=== PATIENT | female | born 1995 | race Caucasian/White ===

== ENCOUNTER 2017-07-14 08:41 | Emergency (ER) | payer SELFPAY ==
[~2017-07-14] VITALS: Ht 162.5 cm; Wt 79.4 kg
[~2017-07-14 08:41] MED LIST: BACTRIM DS 8001 TA1 PO; CEPHALEXIN500 M1 PO; DIFLUCAN150 MG PO; ESTRADIOL1 MG PO; LANTUS100 U/ML SC; LESSINA 28 0.021 TAB PO; METFORMIN ER500 MG PO; MOTRIN800 MG PO; NOVOLOG10 ML IV
[2017-07-14 09:11] VITALS: BP 146/83
[2017-07-14 09:30] LABS: BASO % 0.4 % (0.0-1.0); EOS # 0.3 10*3/uL (0.0-0.4); EOS % 2.8 % (1.0-4.0); HEMATOCRIT 43.9 % (37.0-47.0); HEMOGLOBIN 15.5 g/dl (12.0-16.0); LYMPH # 2.4 10*3/uL (1.3-4.4); LYMPH % 26.4 % (27.0-41.0); MEAN CELL VOLUME 85.6 fl (81.0-99.0); MEAN CORPUSCULAR HGB 30.2 pg (27.0-31.0); MEAN CORPUSCULAR HGB CONC 35.3 g/dl (33.0-37.0); MONO # 0.6 10*3/uL (0.1-1.0); MONO % 6.6 % (3.0-9.0); NEUT # 5.8 10*3/uL (2.3-7.9); NEUT % 63.5 % (47.0-73.0); PLATELET COUNT AUTOMATED 397 10*3/uL (130-400); RED BLOOD COUNT 5.13 10*6/uL (4.10-5.10); RED CELL DISTRI WIDTH 11.9 % (0-14.5); WHITE BLOOD COUNT 9.2 10*3/uL (4.8-10.8)
[2017-07-14 09:50] LABS: BILIRUBIN NEGATIVE (NEGATIVE); BLOOD 3+ (NEGATIVE); CLARITY SL CLOUDY (CLEAR); COLOR YELLOW (YELLOW); GLUCOSE 3+ (NEGATIVE); KETONE 2+ (NEGATIVE); LEUKO ESTERASE NEGATIVE (NEGATIVE); NITRITE NEGATIVE (NEGATIVE); SPECIFIC GRAVITY 1.015 (1.005-1.030); UROBILINOGEN 0.2 E.U./dl (0.2-1.0)
[2017-07-14 10:10] LABS: WBC 0-2 wbc/hpf (0-5)
[2017-07-14] MEDS ORDERED: PRENATAL ONE D1 EACH PO (12:00)
[2017-07-14] MEDS ORDERED: AMINOPHYLLIN200 MG PO (12:01)
== END 2017-07-14 12:03 | disposition home or self-care (01) ==
LOC: ED 08:41
PROVIDERS: Physician Assistant
DX: O23.31 Infections of other parts of urinary tract in pregnancy, first trimester (principal); N89.8 Other specified noninflammatory disorders of vagina; O99.331 Smoking (tobacco) complicating pregnancy, first trimester; F17.200 Nicotine dependence, unspecified, uncomplicated; Z79.4 Long term (current) use of insulin; Z3A.01 Less than 8 weeks gestation of pregnancy; Z88.6 Allergy status to analgesic agent

== ENCOUNTER 2017-09-05 21:59 | Emergency (ER) | payer MEDICAID ==
[~2017-09-05] VITALS: Ht 162.5 cm; Wt 81.6 kg
[~2017-09-05 21:59] MED LIST changes: +AMINOPHYLLIN200 MG PO; +PRENATAL ONE D1 EACH PO
[2017-09-05 22:03] VITALS: BP 136/83
[2017-09-05] MEDS ORDERED: PROAIR HFA8.5 GM INH (22:47)
[2017-09-05] MEDS ORDERED: AMOXICILLIN500 M3 PO (22:47)
== END 2017-09-05 23:35 | disposition home or self-care (01) ==
LOC: ED 21:59
DX: O99.512 Diseases of the respiratory system complicating pregnancy, second trimester (principal); O24.912 Unspecified diabetes mellitus in pregnancy, second trimester; O99.332 Smoking (tobacco) complicating pregnancy, second trimester; E10.9 Type 1 diabetes mellitus without complications; J10.1 Influenza due to other identified influenza virus with other respiratory manifestations; F17.200 Nicotine dependence, unspecified, uncomplicated; Z3A.20 20 weeks gestation of pregnancy; Z79.4 Long term (current) use of insulin

== ENCOUNTER 2017-11-22 13:44 | Emergency (ER) | payer OTHER ==
[~2017-11-22] VITALS: Ht 162.5 cm; Wt 77.1 kg
[~2017-11-22 13:44] MED LIST changes: +AMOXICILLIN500 M3 PO; -NOVOLOG10 ML IV; +NOVOLOG10 ML SC; +PROAIR HFA8.5 GM INH
[2017-11-22] MEDS ORDERED: LANTUS SOL100 UNIT/1 SC (13:54)
[2017-11-22 14:12] LABS: BILIRUBIN NEGATIVE (NEGATIVE); BLOOD NEGATIVE (NEGATIVE); CLARITY CLOUDY (CLEAR); COLOR YELLOW (YELLOW); GLUCOSE 2+ (NEGATIVE); KETONE 3+ (NEGATIVE); LEUKO ESTERASE 1+ (NEGATIVE); NITRITE NEGATIVE (NEGATIVE)
[2017-11-22 14:14] LABS: BASO % 0.2 % (0.0-1.0); EOS # 0.1 10*3/uL (0.0-0.4); EOS % 0.9 % (1.0-4.0); HEMOGLOBIN 13.9 g/dl (12.0-16.0); LYMPH # 2.6 10*3/uL (1.3-4.4); LYMPH % 18.3 % (27.0-41.0); MEAN CELL VOLUME 88.9 fl (81.0-99.0); MEAN CORPUSCULAR HGB 30.9 pg (27.0-31.0); MEAN CORPUSCULAR HGB CONC 34.8 g/dl (33.0-37.0); MONO # 0.7 10*3/uL (0.1-1.0); MONO % 5.2 % (3.0-9.0); NEUT # 10.5 10*3/uL (2.3-7.9); NEUT % 75.1 % (47.0-73.0); PLATELET COUNT AUTOMATED 366 10*3/uL (130-400); RED CELL DISTRI WIDTH 12.4 % (0-14.5)
[2017-11-22 14:29] LABS: ALBUMIN 2.7 gm/dl (3.1-4.5); BUN 5 mg/dl (7-24); CHLORIDE 107 mmol/L (98-107); CREATININE 0.32 mg/dL (0.55-1.02); POTASSIUM 3.4 mmol/L (3.5-5.1); SGOT/AST 6 IU/L (3-35); SGPT/ALT 11 U/L (12-78); SODIUM 139 mmol/L (136-145)
[2017-11-22 14:30] LABS: ALKALINE PHOSPHATASE 69 U/L (45-117); TOTAL PROTEIN 6.6 gm/dL (6.4-8.2)
[2017-11-22 14:33] LABS: BACTERIA 2+
[2017-11-22 14:34] LABS: EPITHELIAL CELLS 51-100
[2017-11-22 14:45] VITALS: BP 115/66
[2017-11-22] MEDS ORDERED: MACROBID100 M1 PO (14:57)
== END 2017-11-22 15:08 | disposition home or self-care (01) ==
LOC: ED 13:44
PROVIDERS: Nurse Practitioner Family
DX: O23.42 Unspecified infection of urinary tract in pregnancy, second trimester (principal); Z3A.26 26 weeks gestation of pregnancy; Z79.4 Long term (current) use of insulin; Z88.6 Allergy status to analgesic agent; Z79.899 Other long term (current) drug therapy

== ENCOUNTER 2018-02-04 07:04 | Emergency (ER) | payer OTHER ==
[~2018-02-04] VITALS: Ht 162.5 cm; Wt 81.6 kg
[~2018-02-04 07:04] MED LIST changes: +LANTUS SOL100 UNIT/1 SC; +MACROBID100 M1 PO
[2018-02-04 07:08] VITALS: BP 134/95
[2018-02-04 07:47] LABS: BASO # 0.1 10*3/uL (0.0-0.1); BASO % 0.5 % (0.0-1.0); EOS # 0.3 10*3/uL (0.0-0.4); EOS % 2.2 % (1.0-4.0); HEMATOCRIT 42.7 % (37.0-47.0); HEMOGLOBIN 15.2 g/dl (12.0-16.0); LYMPH # 3.5 10*3/uL (1.3-4.4); LYMPH % 30.5 % (27.0-41.0); MEAN CELL VOLUME 87.1 fl (81.0-99.0); MEAN CORPUSCULAR HGB CONC 35.6 g/dl (33.0-37.0); MEAN PLATELET VOLUME 10.8 fl (9.6-12.3); MONO # 0.8 10*3/uL (0.1-1.0); MONO % 6.6 % (3.0-9.0); NEUT # 6.9 10*3/uL (2.3-7.9); NEUT % 59.9 % (47.0-73.0); PLATELET COUNT AUTOMATED 298 10*3/uL (130-400); RED CELL DISTRI WIDTH 11.8 % (0-14.5); WHITE BLOOD COUNT 11.6 10*3/uL (4.8-10.8)
[2018-02-04 07:59] LABS: ALBUMIN 2.6 gm/dl (3.1-4.5); ALKALINE PHOSPHATASE 130 U/L (45-117); BUN 8 mg/dl (7-24); CHLORIDE 105 mmol/L (98-107); CREATININE 0.46 mg/dL (0.55-1.02); POTASSIUM 3.9 mmol/L (3.5-5.1); SGOT/AST 9 IU/L (3-35); SGPT/ALT 9 U/L (12-78); SODIUM 137 mmol/L (136-145); TOTAL PROTEIN 6.7 gm/dL (6.4-8.2)
== END 2018-02-04 07:55 | disposition short-term general hospital (02) ==
LOC: ED 07:04
PROVIDERS: Emergency Medicine
DX: O13.3 Gestational [pregnancy-induced] hypertension without significant proteinuria, third trimester (principal); O24.414 Gestational diabetes mellitus in pregnancy, insulin controlled; Z88.6 Allergy status to analgesic agent; Z3A.38 38 weeks gestation of pregnancy

== ENCOUNTER → 2019-11-21 | Outpatient (CLI) | payer OTHER ==
[~2019-11-21] MED LIST changes: +COLACE100 MG PO
[2019-11-27 09:07] LABS: AFP MOM 1.18 (.); DIA MOM 0.79 (.); DIA VALUE 117.32 pg/mL (.); DSR (BY AGE) 1 IN 1114 (.); DSR (SECOND TRIMESTER) 1 IN 10000 (.); GEST. AGE ON COLLECTION DATE 17.9 WEEKS (.); GESTATIONAL AGE BASED ON As provided (.); HCG MOM 0.29 (.); HCG VALUE 7471 mIU/mL (.); INSULIN DEPENDENT DIABETES No (.); MATERNAL AGE AT EDD 22.6 yr (.); MULTIPLE GESTATION No (.); OSBR RISK 1 IN 6916 (.); RACE Caucasian (.); T18 RISK Not increased (.); TEST RESULTS *Screen Negative* (.); UE3 MOM 0.68 (.); UE3 VALUE 0.88 ng/mL (.); WEIGHT 180 lbs (.)
== END | disposition home or self-care (01) ==
LOC: LAB 07:53
PROVIDERS: Nurse Practitioner Family
DX: Z34.92 Encounter for supervision of normal pregnancy, unspecified, second trimester (principal); Z3A.00 Weeks of gestation of pregnancy not specified

== ENCOUNTER → 2020-02-12 | Outpatient (CLI) | payer OTHER ==
[2020-02-12 11:07] LABS: BASO # 0.1 10*3/uL (0.0-0.1); BASO % 0.4 % (0.0-1.0); EOS # 0.1 10*3/uL (0.0-0.4); HEMATOCRIT 40.7 % (37.0-47.0); LYMPH # 2.5 10*3/uL (1.3-4.4); LYMPH % 21.2 % (27.0-41.0); MEAN CELL VOLUME 87.7 fl (81.0-99.0); MEAN CORPUSCULAR HGB CONC 34.2 g/dl (33.0-37.0); MONO # 0.8 10*3/uL (0.1-1.0); MONO % 6.5 % (3.0-9.0); NEUT # 8.3 10*3/uL (2.3-7.9); NEUT % 70.6 % (47.0-73.0); PLATELET COUNT AUTOMATED 384 10*3/uL (130-400); RED BLOOD COUNT 4.64 10*6/uL (4.10-5.10); RED CELL DISTRI WIDTH 12.1 % (0-14.5); WHITE BLOOD COUNT 11.7 10*3/uL (4.8-10.8)
== END | disposition home or self-care (01) ==
LOC: LAB 10:39
PROVIDERS: ATTEND Obstetrics & Gynecology
DX: Z34.93 Encounter for supervision of normal pregnancy, unspecified, third trimester (principal); Z3A.00 Weeks of gestation of pregnancy not specified

== ENCOUNTER 2020-02-21 08:51 | Emergency (ER) | payer OTHER ==
[~2020-02-21] VITALS: Wt 82.6 kg
[2020-02-21 08:58] VITALS: BP 135/75
[2020-02-21 09:33] LABS: BILIRUBIN Negative; BLOOD 1+ (NEGATIVE); CLARITY Clear (CLEAR); COLOR Yellow (YELLOW); GLUCOSE 3+; KETONE 3+; LEUKO ESTERASE Negative (NEGATIVE); NITRITE Negative (NEGATIVE); PH 5.5 (4.5-8.0); SPECIFIC GRAVITY >= 1.030 (1.001-1.030); UROBILINOGEN 0.2 E.U./dl (0.0-1.0)
== END 2020-02-21 09:35 | disposition home or self-care (01) ==
LOC: ED 08:51
PROVIDERS: Emergency Medicine
DX: O99.89 Other specified diseases and conditions complicating pregnancy, childbirth and the puerperium (principal); N89.8 Other specified noninflammatory disorders of vagina; Z3A.32 32 weeks gestation of pregnancy; Z88.8 Allergy status to other drugs, medicaments and biological substances; Z79.899 Other long term (current) drug therapy; Z79.4 Long term (current) use of insulin

== ENCOUNTER 2021-06-06 12:04 | Emergency (ER) | payer OTHER ==
[~2021-06-06] VITALS: Wt 68.0 kg
[2021-06-06 12:27] VITALS: BP 127/97
== END 2021-06-06 13:45 | disposition left against medical advice (07) ==
LOC: ED 12:04
DX: Z53.21 Procedure and treatment not carried out due to patient leaving prior to being seen by health care provider (principal)

== ENCOUNTER 2021-08-19 19:02 | Emergency (ER) | payer OTHER ==
[~2021-08-19] VITALS: Wt 63.0 kg
[2021-08-19 19:13] VITALS: BP 140/93
[2021-08-19] MEDS ORDERED: LANTUS SOL100 UNIT/1 SC (19:14)
[2021-08-19] MEDS ORDERED: ADDERALL XR25 MG PO (19:14)
== END 2021-08-19 20:32 | disposition home or self-care (01) ==
LOC: ED 19:02
DX: M79.672 Pain in left foot (principal); Z88.6 Allergy status to analgesic agent; Z79.899 Other long term (current) drug therapy; F17.200 Nicotine dependence, unspecified, uncomplicated

== ENCOUNTER 2022-07-19 15:44 | Emergency (ER) | payer BC ==
[~2022-07-19] VITALS: Wt 54.0 kg
[~2022-07-19 15:44] MED LIST changes: +ADDERALL XR25 MG PO
[2022-07-19 15:56] VITALS: BP 127/95
[2022-07-19 16:27] LABS: BASO # 0.1 10*3/uL (0.0-0.1); BASO % 0.7 % (0.0-1.0); EOS # 0.2 10*3/uL (0.0-0.4); EOS % 1.6 % (1.0-4.0); HEMATOCRIT 43.9 % (37.0-47.0); LYMPH # 4.1 10*3/uL (1.3-4.4); MEAN CELL VOLUME 84.7 fl (81.0-99.0); MEAN CORPUSCULAR HGB 30.3 pg (27.0-31.0); MEAN CORPUSCULAR HGB CONC 35.8 g/dl (33.0-37.0); MEAN PLATELET VOLUME 8.9 fl (9.6-12.3); MONO # 0.7 10*3/uL (0.1-1.0); MONO % 6.6 % (3.0-9.0); NEUT # 4.9 10*3/uL (2.3-7.9); NEUT % 49.9 % (47.0-73.0); PLATELET COUNT AUTOMATED 404 10*3/uL (130-400); RED BLOOD COUNT 5.18 10*6/uL (4.10-5.10); RED CELL DISTRI WIDTH 11.8 % (0-14.5); WHITE BLOOD COUNT 9.9 10*3/uL (4.8-10.8)
[2022-07-19 16:43] LABS: ALKALINE PHOSPHATASE 76 U/L (46-116); BUN 6 mg/dl (9-23); CHLORIDE 96 mmol/L (98-107); SGPT/ALT 13 U/L (10-49); TOTAL PROTEIN 6.9 gm/dL (6.0-8.0)
[2022-07-19 16:59] LABS: B-hCG (QUALITATIVE) NEGATIVE (NEGATIVE)
[2022-07-19 19:11] LABS: BILIRUBIN Negative (Negative); BLOOD Negative (Negative); CLARITY Clear (Clear); COLOR Yellow (Yellow); GLUCOSE 3+ (Negative); KETONE 2+ (Negative); LEUKO ESTERASE Negative (Negative); NITRITE Negative (Negative); SPECIFIC GRAVITY >= 1.030 (1.001-1.030)
[2022-07-19 19:19] LABS: MUCOUS 1+; WBC 0-2 wbc/hpf (0-5)
== END 2022-07-19 20:02 | disposition home or self-care (01) ==
LOC: ED 15:44
PROVIDERS: Physician Assistant
DX: E11.65 Type 2 diabetes mellitus with hyperglycemia (principal); Z88.8 Allergy status to other drugs, medicaments and biological substances; Z79.4 Long term (current) use of insulin

== ENCOUNTER 2023-06-10 12:57 | Emergency (ER) | payer MEDICAID ==
[~2023-06-10] VITALS: Ht 160 cm; Wt 45.4 kg
[2023-06-10 13:12] VITALS: BP 122/86
[2023-06-10 14:38] LABS: BASO % 0.2 % (0.0-1.0); EOS # 0.1 10*3/uL (0.0-0.4); EOS % 0.7 % (1.0-4.0); HEMATOCRIT 44.9 % (37.0-47.0); LYMPH # 2.6 10*3/uL (1.3-4.4); LYMPH % 26.6 % (27.0-41.0); MEAN CELL VOLUME 87.4 fl (81.0-99.0); MEAN CORPUSCULAR HGB 28.8 pg (27.0-31.0); MEAN PLATELET VOLUME 8.8 fl (9.6-12.3); MONO # 0.8 10*3/uL (0.1-1.0); MONO % 7.9 % (3.0-9.0); NEUT # 6.3 10*3/uL (2.3-7.9); NEUT % 64.3 % (47.0-73.0); PLATELET COUNT AUTOMATED 364 10*3/uL (130-400); RED BLOOD COUNT 5.14 10*6/uL (4.10-5.10); RED CELL DISTRI WIDTH 11.8 % (0-14.5); WHITE BLOOD COUNT 9.9 10*3/uL (4.8-10.8)
[2023-06-10 15:00] LABS: ALKALINE PHOSPHATASE 96 U/L (46-116); BUN 13 mg/dl (9-23); CHLORIDE 97 mmol/L (98-107); POTASSIUM 4.1 mmol/L (3.4-5.1); SGPT/ALT 11 U/L (5-49)
[2023-06-10] MEDS ORDERED: AVPAK AZITHROM250 M1 PO (17:54)
== END 2023-06-10 18:05 | disposition home or self-care (01) ==
LOC: ED 12:57
PROVIDERS: Nurse Practitioner Family
DX: J40 Bronchitis, not specified as acute or chronic (principal); Z20.822 Contact with and (suspected) exposure to COVID-19; E11.65 Type 2 diabetes mellitus with hyperglycemia; E86.0 Dehydration; R00.0 Tachycardia, unspecified; Z88.8 Allergy status to other drugs, medicaments and biological substances; Z79.4 Long term (current) use of insulin; Z79.899 Other long term (current) drug therapy

== ENCOUNTER 2023-07-01 05:46 | Inpatient (IN) | payer SELFPAY ==
[~2023-07-01] VITALS: Ht 160 cm; Wt 48.0 kg
[~2023-07-01 05:46] MED LIST changes: +AVPAK AZITHROM250 M1 PO
[2023-07-01 05:56] VITALS: BP 112/68
[2023-07-01 06:29] LABS: BASO # 0.1 10*3/uL (0.0-0.1); BASO % 0.3 % (0.0-1.0); EOS % 0.1 % (1.0-4.0); HEMATOCRIT 48.7 % (37.0-47.0); LYMPH # 1.8 10*3/uL (1.3-4.4); LYMPH % 11.6 % (27.0-41.0); MEAN CORPUSCULAR HGB 29.2 pg (27.0-31.0); MEAN CORPUSCULAR HGB CONC 32.4 g/dl (33.0-37.0); MEAN PLATELET VOLUME 9.3 fl (9.6-12.3); MONO # 0.6 10*3/uL (0.1-1.0); MONO % 3.9 % (3.0-9.0); NEUT # 12.7 10*3/uL (2.3-7.9); NEUT % 83.7 % (47.0-73.0); PLATELET COUNT AUTOMATED 471 10*3/uL (130-400); RED BLOOD COUNT 5.41 10*6/uL (4.10-5.10); RED CELL DISTRI WIDTH 12.8 % (0-14.5); WHITE BLOOD COUNT 15.1 10*3/uL (4.8-10.8)
[2023-07-01 06:49] LABS: ALKALINE PHOSPHATASE 120 U/L (46-116); BUN 18 mg/dl (9-23); CHLORIDE 90 mmol/L (98-107); SGPT/ALT 17 U/L (5-49); TOTAL PROTEIN 8.3 gm/dL (6.0-8.0)
[2023-07-01] MEDS ORDERED: NOVOLOG10 ML SC (06:50)
[2023-07-01 07:10] VITALS: BP 118/68
[2023-07-01 09:48] VITALS: BP 114/74
[2023-07-01 12:12] VITALS: BP 107/68
[2023-07-01 17:04] VITALS: BP 118/66
[2023-07-01 17:33] LABS: BILIRUBIN Negative (Negative); BLOOD Negative (Negative); CLARITY Clear (Clear); COLOR Yellow (Yellow); GLUCOSE 3+ (Negative); KETONE 3+ (Negative); LEUKO ESTERASE Negative (Negative); NITRITE Negative (Negative); SPECIFIC GRAVITY >= 1.030 (1.001-1.030); UROBILINOGEN 0.2 E.U./dl (0.0-1.0)
[2023-07-01 17:47] LABS: BACTERIA TRACE; EPITHELIAL CELLS 16-20; YEAST TRACE
[2023-07-01 17:48] LABS: BUN 17 mg/dl (9-23); CHLORIDE 95 mmol/L (98-107); POTASSIUM 3.3 mmol/L (3.4-5.1)
[2023-07-01 20:00] VITALS: BP 100/57
[2023-07-02] VITALS: BP 116/77
[2023-07-02 04:00] VITALS: BP 124/65
[2023-07-02 06:11] LABS: BASO % 0.4 % (0.0-1.0); EOS # 0.3 10*3/uL (0.0-0.4); EOS % 2.4 % (1.0-4.0); LYMPH # 3.6 10*3/uL (1.3-4.4); LYMPH % 33.3 % (27.0-41.0); MEAN CELL VOLUME 89.8 fl (81.0-99.0); MEAN CORPUSCULAR HGB 29.3 pg (27.0-31.0); MEAN CORPUSCULAR HGB CONC 32.6 g/dl (33.0-37.0); MEAN PLATELET VOLUME 9.3 fl (9.6-12.3); MONO # 0.8 10*3/uL (0.1-1.0); MONO % 7.4 % (3.0-9.0); NEUT # 6.1 10*3/uL (2.3-7.9); NEUT % 56.1 % (47.0-73.0); PLATELET COUNT AUTOMATED 359 10*3/uL (130-400); RED BLOOD COUNT 4.23 10*6/uL (4.10-5.10); RED CELL DISTRI WIDTH 12.6 % (0-14.5); WHITE BLOOD COUNT 10.8 10*3/uL (4.8-10.8)
[2023-07-02 06:24] LABS: BUN 13 mg/dl (9-23); CHLORIDE 99 mmol/L (98-107)
[2023-07-02 08:00] VITALS: BP 113/74
== END 2023-07-02 09:55 | disposition left against medical advice (07) | DRG 639 ==
LOC: ED 05:46 → EDHOLD 07:16 → ICCU 07:16
PROVIDERS: Emergency Medicine; ADMIT Internal Medicine; ATTEND Internal Medicine
DX: E10.10 Type 1 diabetes mellitus with ketoacidosis without coma (principal); E87.6 Hypokalemia; Z91.148 Patient's other noncompliance with medication regimen for other reason; Z53.29 Procedure and treatment not carried out because of patient's decision for other reasons

== ENCOUNTER 2023-09-05 05:20 | Inpatient (IN) | payer SELFPAY ==
[~2023-09-05] VITALS: Ht 160 cm; Wt 48.1 kg
[2023-09-05 05:31] VITALS: BP 118/79
[2023-09-05] MEDS ORDERED: Ondansetron Hydrochloride 4 MG/2 ML VIAL IV ONE (05:50)
[2023-09-05] MEDS ORDERED: SODIUM CHLORIDE 0.9% 1,000 ML IV ONE ×3 (05:50→07:00)
[2023-09-05] MEDS ORDERED: INSULIN REGULAR, HUMAN 1 UNIT/0.01 ML IV ONE ×2 (05:50)
[2023-09-05 06:09] LABS: ABG BASE EXCESS -0.7 mmol/L (-2.0-2.0); ARTERIAL BLOOD GAS PH 7.423 (7.35-7.45)
[2023-09-05 06:11] LABS: BASO # 0.1 10*3/uL (0.0-0.1); BASO % 0.4 % (0.0-1.0); EOS % 0.1 % (1.0-4.0); HEMATOCRIT 49.7 % (37.0-47.0); LYMPH % 14.7 % (27.0-41.0); MEAN CELL VOLUME 87.5 fl (81.0-99.0); MEAN CORPUSCULAR HGB 29.6 pg (27.0-31.0); MEAN CORPUSCULAR HGB CONC 33.8 g/dl (33.0-37.0); MONO # 0.5 10*3/uL (0.1-1.0); MONO % 3.6 % (3.0-9.0); NEUT # 10.9 10*3/uL (2.3-7.9); NEUT % 80.8 % (47.0-73.0); PLATELET COUNT AUTOMATED 508 10*3/uL (130-400); RED BLOOD COUNT 5.68 10*6/uL (4.10-5.10); RED CELL DISTRI WIDTH 12.4 % (0-14.5); WHITE BLOOD COUNT 13.4 10*3/uL (4.8-10.8)
[2023-09-05 06:42] LABS: BUN 17 mg/dl (9-23); CHLORIDE 85 mmol/L (98-107)
[2023-09-05] MEDS ORDERED: INSULIN REGULAR IN 0.9 % NACL 100 ML IV SCH ×2 (07:00→10:10)
[2023-09-05] MEDS ORDERED: POTASSIUM CHLORIDE IN WATER 100 ML IV SCH (07:00)
[2023-09-05] MEDS ORDERED: Ondansetron Hydrochloride 4 MG/2 ML VIAL IV PRN (08:35)
[2023-09-05 08:42] VITALS: BP 130/77
[2023-09-05 10:10] VITALS: BP 128/71
[2023-09-05] MEDS ORDERED: POTASSIUM CHLORIDE IN WATER 10 MEQ/100 ML PIGGYBACK IV PRN (10:10)
[2023-09-05] MEDS ORDERED: POTASSIUM CHLORIDE 20 MEQ TAB PO PRN (10:10)
[2023-09-05 12:00] VITALS: BP 130/95
[2023-09-05] MEDS ORDERED: DEXTROSE 5% SALINE 0.45% 1,000 ML IV SCH (13:20)
[2023-09-05] MEDS ORDERED: MUPIROCIN 15 GM TUBE T SCH (14:00)
[2023-09-05 16:00] VITALS: BP 114/66
[2023-09-05 18:15] LABS: BUN 12 mg/dl (9-23); CHLORIDE 98 mmol/L (98-107); POTASSIUM 2.8 mmol/L (3.4-5.1)
[2023-09-05 20:00] VITALS: BP 117/73
[2023-09-05] MEDS ORDERED: AMMONIUM LACTATE 12% LOTION T SCH (22:00)
[2023-09-06] VITALS: BP 123/67
[2023-09-06 00:36] LABS: BUN 14 mg/dl (9-23); CHLORIDE 100 mmol/L (98-107); POTASSIUM 2.8 mmol/L (3.4-5.1)
[2023-09-06 04:00] VITALS: BP 131/87
[2023-09-06 06:30] LABS: BASO % 0.2 % (0.0-1.0); BUN 11 mg/dl (9-23); CHLORIDE 98 mmol/L (98-107); EOS # 0.1 10*3/uL (0.0-0.4); EOS % 0.3 % (1.0-4.0); HEMATOCRIT 45.6 % (37.0-47.0); LYMPH # 3.1 10*3/uL (1.3-4.4); LYMPH % 18.1 % (27.0-41.0); MEAN CELL VOLUME 89.2 fl (81.0-99.0); MEAN CORPUSCULAR HGB 29.7 pg (27.0-31.0); MEAN CORPUSCULAR HGB CONC 33.3 g/dl (33.0-37.0); MEAN PLATELET VOLUME 9.6 fl (9.6-12.3); MONO # 0.7 10*3/uL (0.1-1.0); MONO % 4.1 % (3.0-9.0); NEUT # 13.3 10*3/uL (2.3-7.9); NEUT % 76.8 % (47.0-73.0); PLATELET COUNT AUTOMATED 460 10*3/uL (130-400); POTASSIUM 3.4 mmol/L (3.4-5.1); RED BLOOD COUNT 5.11 10*6/uL (4.10-5.10); RED CELL DISTRI WIDTH 12.3 % (0-14.5); WHITE BLOOD COUNT 17.3 10*3/uL (4.8-10.8)
[2023-09-06] MEDS ORDERED: Ketorolac Tromethamine 30 MG/ML VIAL IV ONE (07:05)
[2023-09-06] MEDS ORDERED: Ketorolac Tromethamine 15 MG/ML VIAL IV PRN (07:10)
[2023-09-06 08:00] VITALS: BP 124/85
[2023-09-06] MEDS ORDERED: DEXTROSE 10 % IN WATER 250 ML IV PRN (10:20)
[2023-09-06] MEDS ORDERED: SODIUM CHLORIDE 0.9% 1,000 ML IV SCH (10:20)
[2023-09-06] MEDS ORDERED: INSULIN REGULAR, HUMAN 1 UNIT/0.01 ML SC SCH (11:30)
[2023-09-06 12:00] VITALS: BP 126/89
[2023-09-06] MEDS ORDERED: INSULIN LISPRO 1 UNIT/0.01 ML SQ SCH (12:00)
[2023-09-06 12:45] LABS: BUN 12 mg/dl (9-23); CHLORIDE 96 mmol/L (98-107); POTASSIUM 3.9 mmol/L (3.4-5.1)
[2023-09-07] MEDS ORDERED: Insulin Glargine, Recombinan 1 UNIT/0.01 ML SC SCH (10:00)
== END 2023-09-06 16:39 | disposition left against medical advice (07) | DRG 639 ==
LOC: ED 05:20 → ICCU 07:08 → EDHOLD 07:08 → ICCU 09:46
PROVIDERS: Internal Medicine; ADMIT Internal Medicine; ATTEND Internal Medicine
DX: E10.10 Type 1 diabetes mellitus with ketoacidosis without coma (principal); E87.6 Hypokalemia; D75.1 Secondary polycythemia; E10.43 Type 1 diabetes mellitus with diabetic autonomic (poly)neuropathy; K31.84 Gastroparesis; Z91.199 Patient's noncompliance with other medical treatment and regimen due to unspecified reason

== ENCOUNTER 2023-11-08 09:02 | Emergency (ER) | payer SELFPAY ==
[~2023-11-08] VITALS: Wt 52.2 kg
[2023-11-08] MEDS ORDERED: SODIUM CHLORIDE 0.45% 1,000 ML IV ONE (09:35)
[2023-11-08 09:46] LABS: BASO # 0.1 10*3/uL (0.0-0.1); BASO % 0.5 % (0.0-1.0); EOS # 0.2 10*3/uL (0.0-0.4); HEMATOCRIT 42.8 % (37.0-47.0); LYMPH # 2.4 10*3/uL (1.3-4.4); LYMPH % 23.8 % (27.0-41.0); MEAN CELL VOLUME 88.4 fl (81.0-99.0); MEAN CORPUSCULAR HGB CONC 33.9 g/dl (33.0-37.0); MONO # 0.6 10*3/uL (0.1-1.0); MONO % 6.2 % (3.0-9.0); NEUT # 6.6 10*3/uL (2.3-7.9); NEUT % 67.2 % (47.0-73.0); PLATELET COUNT AUTOMATED 387 10*3/uL (130-400); RED BLOOD COUNT 4.84 10*6/uL (4.10-5.10); WHITE BLOOD COUNT 9.9 10*3/uL (4.8-10.8)
[2023-11-08 10:14] LABS: ALKALINE PHOSPHATASE 100 U/L (46-116); BUN 9 mg/dl (9-23); CHLORIDE 99 mmol/L (98-107); POTASSIUM 4.1 mmol/L (3.4-5.1); SGPT/ALT 11 U/L (5-49); TOTAL PROTEIN 7.1 gm/dL (6.0-8.0)
[2023-11-08 10:18] LABS: BILIRUBIN Negative (Negative); BLOOD Negative (Negative); CLARITY Clear (Clear); COLOR Yellow (Yellow); GLUCOSE 3+ (Negative); KETONE 1+ (Negative); LEUKO ESTERASE Negative (Negative); NITRITE Negative (Negative); PH 5.5 (4.5-8.0); SPECIFIC GRAVITY >= 1.030 (1.001-1.030); UROBILINOGEN 0.2 E.U./dl (0.0-1.0)
[2023-11-08 10:33] LABS: BACTERIA TRACE; WBC 0-2 wbc/hpf (0-5)
[2023-11-08] MEDS ORDERED: SODIUM CHLORIDE 0.9% 1,000 ML IV ONE ×2 (10:55→11:59)
[2023-11-08] MEDS ORDERED: INSULIN LISPRO 1 UNIT/0.01 ML SQ ONE (10:55)
[2023-11-08 11:55] VITALS: BP 116/80
[2023-11-08] MEDS ORDERED: Amoxicillin/Clavulanate Pota 875 MG TAB PO ONE (13:20)
[2023-11-08] MEDS ORDERED: AMOX-CLAV 875-1 EACH PO (13:29)
== END 2023-11-08 13:35 | disposition home or self-care (01) ==
LOC: ED 09:02
PROVIDERS: Emergency Medicine
DX: N63.20 Unspecified lump in the left breast, unspecified quadrant (principal); E10.9 Type 1 diabetes mellitus without complications

== ENCOUNTER → 2023-11-15 | Outpatient (CLI) | payer SELFPAY ==
[~2023-11-15] MED LIST changes: +AMOX-CLAV 875-1 EACH PO
== END | disposition home or self-care (01) ==
LOC: RAD 11-09 11:00 → SDC 11-09 11:00 → US 11-09 11:00 → EDSTATUS 11-09 11:00 → MAMMO 11-09 13:00 → SDC 01:58
PROVIDERS: ATTEND Emergency Medicine
DX: N61.1 Abscess of the breast and nipple (principal)

== ENCOUNTER 2023-11-23 18:02 | Inpatient (IN) | payer SELFPAY ==
[~2023-11-23] VITALS: Ht 160 cm; Wt 54.4 kg
[2023-11-23 18:08] VITALS: BP 147/89
[2023-11-23] MEDS ORDERED: CLINDAMYCIN HC300 MG PO (18:09)
[2023-11-23 18:33] LABS: BASO # 0.1 10*3/uL (0.0-0.1); BASO % 0.5 % (0.0-1.0); EOS # 0.2 10*3/uL (0.0-0.4); EOS % 1.2 % (1.0-4.0); LYMPH # 2.4 10*3/uL (1.3-4.4); LYMPH % 16.5 % (27.0-41.0); MEAN CELL VOLUME 88.4 fl (81.0-99.0); MEAN CORPUSCULAR HGB 30.2 pg (27.0-31.0); MEAN CORPUSCULAR HGB CONC 34.1 g/dl (33.0-37.0); MONO % 6.7 % (3.0-9.0); NEUT # 10.8 10*3/uL (2.3-7.9); NEUT % 74.7 % (47.0-73.0); PLATELET COUNT AUTOMATED 435 10*3/uL (130-400); RED BLOOD COUNT 4.64 10*6/uL (4.10-5.10); RED CELL DISTRI WIDTH 11.9 % (0-14.5); WHITE BLOOD COUNT 14.4 10*3/uL (4.8-10.8)
[2023-11-23 18:46] LABS: BUN 10 mg/dl (9-23); CHLORIDE 99 mmol/L (98-107)
[2023-11-23] MEDS ORDERED: SODIUM CHLORIDE 0.9% 1,000 ML IV ONE (19:00)
[2023-11-23] MEDS ORDERED: INSULIN REGULAR, HUMAN 1 UNIT/0.01 ML IV ONE (19:05)
[2023-11-23] MEDS ORDERED: Ketorolac Tromethamine 30 MG/ML VIAL IV ONE (19:05)
[2023-11-23] MEDS ORDERED: Vancomycin Hydrochloride 250 ML IV ONE (19:15)
[2023-11-23] MEDS ORDERED: Piperacillin Sodium/Tazobact 50 ML IV ONE (19:15)
[2023-11-23 22:19] VITALS: BP 122/74
[2023-11-24 03:17] VITALS: BP 130/80
[2023-11-24 04:27] LABS: BASO # 0.1 10*3/uL (0.0-0.1); BASO % 0.5 % (0.0-1.0); EOS # 0.2 10*3/uL (0.0-0.4); EOS % 1.4 % (1.0-4.0); HEMATOCRIT 39.5 % (37.0-47.0); LYMPH # 2.2 10*3/uL (1.3-4.4); LYMPH % 15.4 % (27.0-41.0); MEAN CORPUSCULAR HGB CONC 33.7 g/dl (33.0-37.0); MEAN PLATELET VOLUME 9.1 fl (9.6-12.3); MONO # 0.9 10*3/uL (0.1-1.0); MONO % 6.2 % (3.0-9.0); NEUT # 10.7 10*3/uL (2.3-7.9); NEUT % 76.1 % (47.0-73.0); PLATELET COUNT AUTOMATED 399 10*3/uL (130-400); RED BLOOD COUNT 4.44 10*6/uL (4.10-5.10); RED CELL DISTRI WIDTH 11.9 % (0-14.5); WHITE BLOOD COUNT 14.1 10*3/uL (4.8-10.8)
[2023-11-24 04:48] LABS: BUN 10 mg/dl (9-23); CHLORIDE 100 mmol/L (98-107); POTASSIUM 4.1 mmol/L (3.4-5.1)
[2023-11-24 06:04] VITALS: BP 128/76
[2023-11-24] MEDS ORDERED: LANTUS SOL100 UNIT/1 SC (08:12)
[2023-11-24] MEDS ORDERED: LEVOFLOXACIN500 MG PO (08:16)
[2023-11-24] MEDS ORDERED: Ondansetron Hydrochloride 4 MG/2 ML VIAL IV PRN (08:25)
[2023-11-24] MEDS ORDERED: Acetaminophen/Hydrocodone 5 MG/325 MG TABLET PO PRN (08:25)
[2023-11-24 13:34] VITALS: BP 133/78
[2023-11-24] MEDS ORDERED: Pantoprazole Sodium 40 MG VIAL IV ONE (14:05)
[2023-11-24] MEDS ORDERED: Lidocaine Hydrochloride 30 ML VIAL ONE (14:26)
[2023-11-24] MEDS ORDERED: EPINEPHrine/Lidocaine Hydroc 20 ML VIAL ONE (14:27)
[2023-11-24] MEDS ORDERED: BUPIVACAINE 0.5% 30 ML IV ONE (14:27)
[2023-11-24 14:46] VITALS: BP 113/72
[2023-11-24 15:00] VITALS: BP 138/98
[2023-11-24 15:11] VITALS: BP 140/92
[2023-11-24] MEDS ORDERED: Midazolam Hydrochloride 2 MG/2 ML VIAL IV ONE (15:32)
[2023-11-24] MEDS ORDERED: fentaNYL CITRATE 100 MCG/2 ML VIAL IV ONE (15:32)
[2023-11-24] MEDS ORDERED: PROPOFOL 200 MG/20 ML VIAL IV ONE (15:32)
[2023-11-24] MEDS ORDERED: Insulin Glargine, Recombinan 1 UNIT/0.01 ML SC SCH (22:00)
== END 2023-11-24 16:06 | disposition home or self-care (01) | DRG 585 ==
LOC: ED 18:02 → EDHOLD 19:34
PROVIDERS: Nurse Practitioner; ADMIT Internal Medicine; ATTEND Internal Medicine
PROC: 0H9U0ZZ Drainage of Left Breast, Open Approach (ICD-10-PCS; principal; 2023-11-24)
DX: N61.1 Abscess of the breast and nipple (principal); E10.9 Type 1 diabetes mellitus without complications

== ENCOUNTER 2024-01-15 05:35 | Emergency (ER) | payer SELFPAY ==
[~2024-01-15] VITALS: Ht 160 cm; Wt 49.9 kg
[~2024-01-15 05:35] MED LIST changes: +CLINDAMYCIN HC300 MG PO; +LEVOFLOXACIN500 MG PO
[2024-01-15] MEDS ORDERED: SODIUM CHLORIDE 0.9% 1,000 ML IV ONE ×2 (05:50→05:55)
[2024-01-15] MEDS ORDERED: INSULIN REGULAR, HUMAN 1 UNIT/0.01 ML IV ONE ×2 (06:00)
[2024-01-15 06:15] LABS: BASO # 0.1 10*3/uL (0.0-0.1); BASO % 0.6 % (0.0-1.0); EOS # 0.1 10*3/uL (0.0-0.4); EOS % 0.7 % (1.0-4.0); HEMATOCRIT 46.7 % (37.0-47.0); LYMPH # 2.4 10*3/uL (1.3-4.4); LYMPH % 21.4 % (27.0-41.0); MEAN CELL VOLUME 86.5 fl (81.0-99.0); MEAN CORPUSCULAR HGB CONC 34.7 g/dl (33.0-37.0); MEAN PLATELET VOLUME 8.9 fl (9.6-12.3); MONO # 0.6 10*3/uL (0.1-1.0); NEUT % 71.8 % (47.0-73.0); PLATELET COUNT AUTOMATED 423 10*3/uL (130-400); RED CELL DISTRI WIDTH 11.9 % (0-14.5); WHITE BLOOD COUNT 11.1 10*3/uL (4.8-10.8)
[2024-01-15 06:31] LABS: BILIRUBIN Negative (Negative); BLOOD Negative (Negative); CLARITY Clear (Clear); COLOR Yellow (Yellow); GLUCOSE 3+ (Negative); KETONE 3+ (Negative); LEUKO ESTERASE Negative (Negative); NITRITE Negative (Negative); PH 6.5 (4.5-8.0); SPECIFIC GRAVITY >= 1.030 (1.001-1.030); UROBILINOGEN 0.2 E.U./dl (0.0-1.0)
[2024-01-15 06:37] LABS: BUN 16 mg/dl (9-23); CHLORIDE 93 mmol/L (98-107)
[2024-01-15 11:54] VITALS: BP 118/74
== END 2024-01-15 12:05 | disposition home or self-care (01) ==
LOC: ED 05:35
PROVIDERS: Internal Medicine
DX: E11.65 Type 2 diabetes mellitus with hyperglycemia (principal); R11.2 Nausea with vomiting, unspecified; R63.0 Anorexia; Z68.1 Body mass index [BMI] 19.9 or less, adult; Z79.4 Long term (current) use of insulin

== ENCOUNTER 2024-02-02 23:04 | Inpatient (IN) | payer SELFPAY ==
[~2024-02-02] VITALS: Wt 53.5 kg
[2024-02-02] MEDS ORDERED: SODIUM CHLORIDE 0.9% 1,000 ML IV ONE (23:25)
[2024-02-02 23:32] VITALS: BP 125/86
[2024-02-03 00:04] LABS: BASO # 0.1 10*3/uL (0.0-0.1); BASO % 0.6 % (0.0-1.0); EOS % 0.2 % (1.0-4.0); HEMATOCRIT 50.2 % (37.0-47.0); LYMPH # 2.7 10*3/uL (1.3-4.4); LYMPH % 15.4 % (27.0-41.0); MEAN CELL VOLUME 92.3 fl (81.0-99.0); MEAN CORPUSCULAR HGB 29.8 pg (27.0-31.0); MEAN CORPUSCULAR HGB CONC 32.3 g/dl (33.0-37.0); MEAN PLATELET VOLUME 9.3 fl (9.6-12.3); MONO % 5.8 % (3.0-9.0); NEUT # 13.7 10*3/uL (2.3-7.9); NEUT % 77.4 % (47.0-73.0); PLATELET COUNT AUTOMATED 378 10*3/uL (130-400); RED BLOOD COUNT 5.44 10*6/uL (4.10-5.10); RED CELL DISTRI WIDTH 12.2 % (0-14.5); WHITE BLOOD COUNT 17.6 10*3/uL (4.8-10.8)
[2024-02-03 00:32] LABS: ALKALINE PHOSPHATASE 117 U/L (46-116); BUN 14 mg/dl (9-23); CHLORIDE 92 mmol/L (98-107); ETHYL ALCOHOL 4.4 mg/dl (<3); LIPASE 75 U/L (12-53); POTASSIUM 4.4 mmol/L (3.4-5.1); SGPT/ALT 14 U/L (5-49); TOTAL PROTEIN 7.5 gm/dL (6.0-8.0)
[2024-02-03] MEDS ORDERED: INSULIN REGULAR IN 0.9 % NACL 100 ML IV SCH ×2 (00:35→01:00)
[2024-02-03 00:47] LABS: ACT PARTIAL THROMBO TIME 21.1 SECONDS (20.0-32.1)
[2024-02-03] MEDS ORDERED: POTASSIUM CHLORIDE 20 MEQ TAB PO PRN (01:00)
[2024-02-03] MEDS ORDERED: POTASSIUM CHLORIDE 20 MEQ/100 ML BAG IV PRN (01:00)
[2024-02-03] MEDS ORDERED: SODIUM CHLORIDE 0.9% 1,000 ML IV SCH ×2 (01:05→09:25)
[2024-02-03] MEDS ORDERED: Ondansetron Hydrochloride 4 MG/2 ML VIAL IV ONE (02:00)
[2024-02-03 02:18] LABS: BILIRUBIN Negative (Negative); BLOOD Negative (Negative); CLARITY Cloudy (Clear); COLOR Yellow (Yellow); GLUCOSE 3+ (Negative); KETONE 4+ (Negative); LEUKO ESTERASE 1+ (Negative); NITRITE Negative (Negative); SPECIFIC GRAVITY >= 1.030 (1.001-1.030); UROBILINOGEN 0.2 E.U./dl (0.0-1.0)
[2024-02-03 02:28] LABS: EPITHELIAL CELLS TNTC
[2024-02-03 02:29] LABS: BACTERIA TRACE; WBC 21-30 wbc/hpf (0-5); YEAST TRACE
[2024-02-03 03:00] LABS: URINE AMPHETAMINES Positive (1000ng/ml); URINE BARBITURATES Negative (200ng/ml); URINE BENZODIAZEPINES Negative (200ng/ml); URINE CANNABINOIDS (THC) Negative (50ng/ml); URINE COCAINE Negative (300ng/ml); URINE METHADONE Negative (300ng/ml); URINE OPIATES Negative (300ng/ml); URINE PHENCYCLIDINE Negative (25ng/ml)
[2024-02-03 05:57] VITALS: BP 138/95
[2024-02-03 10:23] LABS: MEAN CORPUSCULAR HGB 30.9 pg (27.0-31.0); MEAN PLATELET VOLUME 8.9 fl (9.6-12.3); PLATELET COUNT AUTOMATED 432 10*3/uL (130-400); RED BLOOD COUNT 5.24 10*6/uL (4.10-5.10); RED CELL DISTRI WIDTH 12.4 % (0-14.5); WHITE BLOOD COUNT 23.2 10*3/uL (4.8-10.8)
[2024-02-03 10:24] LABS: MANUAL DIFF REFLEX YES; MEAN CELL VOLUME 85.9 fl (81.0-99.0)
[2024-02-03] MEDS ORDERED: Ondansetron Hydrochloride 4 MG/2 ML VIAL IV PRN (10:30)
[2024-02-03 10:37] LABS: BASOPHILS 1 % (0-1); POLYCHROMASIA SLIGHT; TOTAL CELLS COUNTED 100 #CELLS
[2024-02-03 10:38] LABS: PLATELET SUFFICIENCY HIGH (NORMAL)
[2024-02-03 10:41] LABS: ALKALINE PHOSPHATASE 99 U/L (46-116); BUN 16 mg/dl (9-23); CHLORIDE 103 mmol/L (98-107); POTASSIUM 3.2 mmol/L (3.4-5.1); SGPT/ALT 11 U/L (5-49); TOTAL PROTEIN 7.1 gm/dL (6.0-8.0)
[2024-02-03 12:14] VITALS: BP 119/75
[2024-02-03 14:25] VITALS: BP 141/89
[2024-02-03] MEDS ORDERED: DEXTROSE 10 % IN WATER 250 ML IV PRN (15:15)
[2024-02-03] MEDS ORDERED: Insulin Glargine, Recombinan 1 UNIT/0.01 ML SC SCH (15:20)
[2024-02-03] MEDS ORDERED: Ceftriaxone Sodium 2 GM,IV 1 EA in SYRINGE INFUSION 20 ML IV SCH (16:00)
[2024-02-03] MEDS ORDERED: INSULIN LISPRO 1 UNIT/0.01 ML SQ SCH (16:30)
[2024-02-03 17:46] VITALS: BP 127/78
[2024-02-03 23:14] VITALS: BP 123/82
[2024-02-04 06:04] VITALS: BP 134/87
[2024-02-04 06:37] LABS: BUN 7 mg/dl (9-23); CHLORIDE 106 mmol/L (98-107)
[2024-02-04 06:52] LABS: BASO # 0.1 10*3/uL (0.0-0.1); BASO % 0.4 % (0.0-1.0); EOS # 0.2 10*3/uL (0.0-0.4); EOS % 1.2 % (1.0-4.0); HEMATOCRIT 39.3 % (37.0-47.0); LYMPH # 3.2 10*3/uL (1.3-4.4); LYMPH % 17.5 % (27.0-41.0); MEAN CELL VOLUME 86.6 fl (81.0-99.0); MEAN CORPUSCULAR HGB 30.2 pg (27.0-31.0); MEAN CORPUSCULAR HGB CONC 34.9 g/dl (33.0-37.0); MEAN PLATELET VOLUME 9.1 fl (9.6-12.3); MONO # 1.3 10*3/uL (0.1-1.0); MONO % 6.8 % (3.0-9.0); NEUT # 13.6 10*3/uL (2.3-7.9); NEUT % 73.7 % (47.0-73.0); PLATELET COUNT AUTOMATED 380 10*3/uL (130-400); RED BLOOD COUNT 4.54 10*6/uL (4.10-5.10); RED CELL DISTRI WIDTH 12.4 % (0-14.5); WHITE BLOOD COUNT 18.5 10*3/uL (4.8-10.8)
[2024-02-04 07:54] VITALS: BP 144/86
[2024-02-04 10:38] VITALS: BP 120/68
== END 2024-02-04 15:02 | disposition left against medical advice (07) | DRG 638 ==
LOC: ED 23:04 → EDHOLD 02-03 00:53
PROVIDERS: Internal Medicine; ADMIT Internal Medicine; ATTEND Internal Medicine
DX: E10.10 Type 1 diabetes mellitus with ketoacidosis without coma (principal); E87.1 Hypo-osmolality and hyponatremia; N39.0 Urinary tract infection, site not specified; F90.9 Attention-deficit hyperactivity disorder, unspecified type; E87.6 Hypokalemia; Z53.29 Procedure and treatment not carried out because of patient's decision for other reasons; D72.829 Elevated white blood cell count, unspecified; Z79.899 Other long term (current) drug therapy; Z91.199 Patient's noncompliance with other medical treatment and regimen due to unspecified reason; Z79.01 Long term (current) use of anticoagulants; Z79.2 Long term (current) use of antibiotics; Z82.49 Family history of ischemic heart disease and other diseases of the circulatory system; Z83.3 Family history of diabetes mellitus; Z80.8 Family history of malignant neoplasm of other organs or systems

== ENCOUNTER 2024-03-24 17:11 | Inpatient (IN) | payer SELFPAY ==
[~2024-03-24] VITALS: Ht 160 cm; Wt 50.9 kg
[2024-03-24] MEDS ORDERED: HUMALOG100 UNIT/1 SQ (17:31)
[2024-03-24] MEDS ORDERED: Prochlorperazine Edisylate 10 MG/2 ML VIAL IV ONE (17:35)
[2024-03-24] MEDS ORDERED: diphenhydrAMINE hydrochloride 50 MG/ML VIAL IV ONE (17:35)
[2024-03-24] MEDS ORDERED: SODIUM CHLORIDE 0.9% 1,000 ML IV ONE ×4 (17:35→17:54)
[2024-03-24 17:43] LABS: VENOUS BLOOD GAS O2 SAT 90.6 % (60.0-85.0)
[2024-03-24 17:44] LABS: HEMATOCRIT 46.7 % (37.0-47.0); MEAN CORPUSCULAR HGB 29.3 pg (27.0-31.0); MEAN PLATELET VOLUME 10.2 fl (9.6-12.3); PLATELET COUNT AUTOMATED 525 10*3/uL (130-400); RED BLOOD COUNT 5.25 10*6/uL (4.10-5.10); RED CELL DISTRI WIDTH 12.9 % (0-14.5); WHITE BLOOD COUNT 20.6 10*3/uL (4.8-10.8)
[2024-03-24 17:46] LABS: MANUAL DIFF REFLEX YES
[2024-03-24 17:50] VITALS: BP 115/69
[2024-03-24] MEDS ORDERED: Ceftriaxone Sodium 1 GM/10 ML SYR IV ONE (18:00)
[2024-03-24 18:05] LABS: BASOPHILS 1 % (0-1); PLATELET SUFFICIENCY HIGH (NORMAL); TOTAL CELLS COUNTED 100 #CELLS
[2024-03-24 18:06] LABS: BURR CELLS FEW; POLYCHROMASIA SLIGHT
[2024-03-24 18:37] LABS: BUN 25 mg/dl (9-23); CHLORIDE 102 mmol/L (98-107); POTASSIUM 4.8 mmol/L (3.4-5.1)
[2024-03-24 18:41] VITALS: BP 124/68
[2024-03-24] MEDS ORDERED: INSULIN REGULAR, HUMAN 1 UNIT/0.01 ML IV ONE (18:45)
[2024-03-24] MEDS ORDERED: INSULIN REGULAR IN 0.9 % NACL 100 ML IV SCH (18:45)
[2024-03-24] MEDS ORDERED: Ondansetron Hydrochloride 4 MG/2 ML VIAL IV PRN (19:30)
[2024-03-24] MEDS ORDERED: ACETAMINOPHEN 325 MG TAB PO PRN (19:40)
[2024-03-24] MEDS ORDERED: SODIUM CHLORIDE 0.9% IV SCH (19:45)
[2024-03-24] MEDS ORDERED: SODIUM BICARBONATE IV SCH (19:45)
[2024-03-24 20:03] VITALS: BP 100/51
[2024-03-24 21:22] VITALS: BP 111/54
[2024-03-24 22:12] VITALS: BP 121/79
[2024-03-25] VITALS: BP 146/97
[2024-03-25 02:23] LABS: BUN 28 mg/dl (9-23); CHLORIDE 110 mmol/L (98-107)
[2024-03-25 02:26] LABS: POTASSIUM 3.5 mmol/L (3.4-5.1)
[2024-03-25] MEDS ORDERED: SODIUM CHLORIDE 0.9% 1,000 ML IV SCH (02:40)
[2024-03-25 04:00] VITALS: BP 147/91
[2024-03-25 06:01] LABS: BUN 25 mg/dl (9-23); CHLORIDE 107 mmol/L (98-107); POTASSIUM 3.8 mmol/L (3.4-5.1)
[2024-03-25 06:57] LABS: BILIRUBIN Negative (Negative); BLOOD Negative (Negative); CLARITY Clear (Clear); COLOR Yellow (Yellow); GLUCOSE 3+ (Negative); KETONE 3+ (Negative); LEUKO ESTERASE Negative (Negative); NITRITE Negative (Negative); PH 5.5 (4.5-8.0); SPECIFIC GRAVITY >= 1.030 (1.001-1.030); UROBILINOGEN 0.2 E.U./dl (0.0-1.0)
[2024-03-25 07:32] LABS: BACTERIA TRACE
[2024-03-25 08:00] VITALS: BP 131/84
[2024-03-25] MEDS ORDERED: DEXTROSE 10 % IN WATER 250 ML IV PRN (08:45)
[2024-03-25] MEDS ORDERED: INSULIN REGULAR, HUMAN 1 UNIT/0.01 ML SC SCH (11:30)
[2024-03-25 12:00] VITALS: BP 128/79
[2024-03-25] MEDS ORDERED: Ceftriaxone Sodium 1 GM,IV 1 EA in SYRINGE INFUSION 10 ML IV SCH (18:00)
[2024-03-25 19:45] VITALS: BP 122/77
[2024-03-25] MEDS ORDERED: Insulin Glargine, Recombinan 1 UNIT/0.01 ML SC SCH (22:00)
[2024-03-25] MEDS ORDERED: [UNRECOGNIZED DRUG - OTHER] PO PRN (23:35)
[2024-03-25] MEDS ORDERED: PHENOL PO PRN (23:35)
[2024-03-26] VITALS: BP 127/78
[2024-03-26 05:42] LABS: CHLORIDE 104 mmol/L (98-107); POTASSIUM 3.6 mmol/L (3.4-5.1)
[2024-03-26 05:46] LABS: BUN 12 mg/dl (9-23)
[2024-03-26 06:15] LABS: BASO # 0.1 10*3/uL (0.0-0.1); BASO % 0.4 % (0.0-1.0); EOS # 0.1 10*3/uL (0.0-0.4); LYMPH # 3.4 10*3/uL (1.3-4.4); LYMPH % 23.7 % (27.0-41.0); MEAN CELL VOLUME 88.5 fl (81.0-99.0); MEAN CORPUSCULAR HGB 30.1 pg (27.0-31.0); MEAN CORPUSCULAR HGB CONC 34.1 g/dl (33.0-37.0); MEAN PLATELET VOLUME 9.1 fl (9.6-12.3); MONO # 1.2 10*3/uL (0.1-1.0); MONO % 8.4 % (3.0-9.0); NEUT # 9.4 10*3/uL (2.3-7.9); NEUT % 66.1 % (47.0-73.0); PLATELET COUNT AUTOMATED 462 10*3/uL (130-400); RED BLOOD COUNT 4.18 10*6/uL (4.10-5.10); RED CELL DISTRI WIDTH 12.7 % (0-14.5); WHITE BLOOD COUNT 14.2 10*3/uL (4.8-10.8)
[2024-03-26] MEDS ORDERED: LANTUS100 UNIT/1 SC (08:51)
== END 2024-03-26 10:15 | disposition home or self-care (01) | DRG 639 ==
LOC: ED 17:11 → ICCU 18:46 → EDHOLD 18:46 → ICCU 18:46
PROVIDERS: Emergency Medicine; ADMIT Internal Medicine; ATTEND Internal Medicine
DX: E10.10 Type 1 diabetes mellitus with ketoacidosis without coma (principal); D72.829 Elevated white blood cell count, unspecified; Z91.148 Patient's other noncompliance with medication regimen for other reason; Z79.4 Long term (current) use of insulin; Z82.49 Family history of ischemic heart disease and other diseases of the circulatory system; Z83.3 Family history of diabetes mellitus

== ENCOUNTER 2024-05-11 09:24 | Inpatient (IN) | payer SELFPAY ==
[~2024-05-11] VITALS: Ht 157.4 cm; Wt 64.4 kg
[~2024-05-11 09:24] MED LIST changes: +HUMALOG100 UNIT/1 SQ; +LANTUS100 UNIT/1 SC; +SEPTDS PO; +VIBRAMYCIN100 MG PO
[2024-05-11 09:35] VITALS: BP 128/88
[2024-05-11] MEDS ORDERED: SODIUM CHLORIDE 0.9% 1,000 ML IV SCH (10:05)
[2024-05-11] MEDS ORDERED: Piperacillin Sodium/Tazobact 100 ML IV ONE (10:05)
[2024-05-11] MEDS ORDERED: Vancomycin Hydrochloride 250 ML IV ONE (10:05)
[2024-05-11] MEDS ORDERED: MORPHINE Sulfate 2 MG/ML SYR IV ONE (10:10)
[2024-05-11 10:20] LABS: BASO # 0.1 10*3/uL (0.0-0.1); BASO % 0.5 % (0.0-1.0); EOS # 0.4 10*3/uL (0.0-0.4); EOS % 1.9 % (1.0-4.0); HEMATOCRIT 44.9 % (37.0-47.0); MEAN CELL VOLUME 86.5 fl (81.0-99.0); MEAN CORPUSCULAR HGB 29.3 pg (27.0-31.0); MEAN CORPUSCULAR HGB CONC 33.9 g/dl (33.0-37.0); MEAN PLATELET VOLUME 8.6 fl (9.6-12.3); MONO # 1.2 10*3/uL (0.1-1.0); MONO % 6.3 % (3.0-9.0); NEUT % 77.1 % (47.0-73.0); PLATELET COUNT AUTOMATED 620 10*3/uL (130-400); RED BLOOD COUNT 5.19 10*6/uL (4.10-5.10); RED CELL DISTRI WIDTH 11.8 % (0-14.5); WHITE BLOOD COUNT 19.5 10*3/uL (4.8-10.8)
[2024-05-11 10:32] LABS: ACT PARTIAL THROMBO TIME 26.9 SECONDS (20.0-32.1)
[2024-05-11] MEDS ORDERED: ACETAMINOPHEN 325 MG TAB PO PRN (11:50)
[2024-05-11] MEDS ORDERED: BISACODYL 10 MG SUPP R PRN (11:50)
[2024-05-11] MEDS ORDERED: Ondansetron Hydrochloride 4 MG/2 ML VIAL IV PRN (11:50)
[2024-05-11] MEDS ORDERED: ACETAMINOPHEN 650 MG SUPP R PRN (11:50)
[2024-05-11] MEDS ORDERED: Acetaminophen/Hydrocodone 5 MG/325 MG TABLET PO PRN (11:50)
[2024-05-11] MEDS ORDERED: Magnesium Hydroxide 30 ML UDC PO PRN (11:50)
[2024-05-11] MEDS ORDERED: BISACODYL 5 MG TAB PO PRN (11:50)
[2024-05-11 12:29] LABS: ALKALINE PHOSPHATASE 174 U/L (46-116); BETA-HCG, QUANT < 3.0 mIU/mL (3-10); BUN 11 mg/dl (9-23); CHLORIDE 96 mmol/L (98-107); POTASSIUM 4.2 mmol/L (3.4-5.1); SGPT/ALT < 7 U/L (5-49); TOTAL PROTEIN 8.3 gm/dL (6.0-8.0)
[2024-05-11] MEDS ORDERED: Lidocaine Hydrochloride 30 ML VIAL SC ONE (12:50)
[2024-05-11] MEDS ORDERED: Midazolam Hydrochloride 5 MG/5 ML VIAL IV ONE (12:50)
[2024-05-11] MEDS ORDERED: HYDROmorphONE Hydrochloride 1 MG/ML SYR IV ONE (12:50)
[2024-05-11] MEDS ORDERED: Vancomycin Hydrochloride 1,000 MG in SODIUM CHLORIDE 0.9% 250 ML IV SCH (13:05)
[2024-05-11] MEDS ORDERED: DEXTROSE 10 % IN WATER 250 ML IV PRN (13:10)
[2024-05-11] MEDS ORDERED: fentaNYL CITRATE 100 MCG/2 ML VIAL IV PRN (13:10)
[2024-05-11] MEDS ORDERED: LIDOCAINE HCL/EPINEPHRINE 50 ML VIAL ONE (13:18)
[2024-05-11] MEDS ORDERED: LIDOCAINE HCL/EPINEPHRINE 50 ML VIAL SC ONE (14:00)
[2024-05-11] MEDS ORDERED: SODIUM CHLORIDE 0.9% 10 ML VIAL IV ONE (14:15)
[2024-05-11] MEDS ORDERED: SODIUM CHLORIDE 0.9% 700 ML IV ONE (14:20)
[2024-05-11 15:51] LABS: BILIRUBIN Negative (Negative); BLOOD 1+ (Negative); CLARITY Clear (Clear); COLOR Yellow (Yellow); GLUCOSE 3+ (Negative); KETONE 2+ (Negative); LEUKO ESTERASE Negative (Negative); NITRITE Negative (Negative); PH 5.5 (4.5-8.0); SPECIFIC GRAVITY >= 1.030 (1.001-1.030); UROBILINOGEN 0.2 E.U./dl (0.0-1.0)
[2024-05-11] MEDS ORDERED: Piperacillin Sodium/Tazobact 50 ML IV SCH (16:00)
[2024-05-11 16:25] LABS: RBC 16-20 rbc/hpf (0-2)
[2024-05-11 16:26] LABS: BACTERIA 2+; EPITHELIAL CELLS 16-20
[2024-05-11] MEDS ORDERED: INSULIN LISPRO 1 UNIT/0.01 ML SQ SCH (16:30)
[2024-05-11] MEDS ORDERED: VANCOMYCIN/WATER FOR INJ (PEG) 150 ML IV SCH (20:00)
[2024-05-11 21:36] VITALS: BP 124/64
[2024-05-11 21:56] VITALS: BP 128/82
[2024-05-11] MEDS ORDERED: Insulin Glargine, Recombinan 1 UNIT/0.01 ML SC SCH (22:00)
[2024-05-12] VITALS: BP 134/82
[2024-05-12 06:10] LABS: BASO # 0.1 10*3/uL (0.0-0.1); BASO % 0.5 % (0.0-1.0); EOS # 0.5 10*3/uL (0.0-0.4); HEMATOCRIT 36.1 % (37.0-47.0); MEAN CORPUSCULAR HGB 29.8 pg (27.0-31.0); MEAN CORPUSCULAR HGB CONC 33.8 g/dl (33.0-37.0); MEAN PLATELET VOLUME 9.1 fl (9.6-12.3); MONO # 1.3 10*3/uL (0.1-1.0); NEUT # 12.4 10*3/uL (2.3-7.9); NEUT % 74.8 % (47.0-73.0); PLATELET COUNT AUTOMATED 535 10*3/uL (130-400); RED CELL DISTRI WIDTH 11.9 % (0-14.5); WHITE BLOOD COUNT 16.6 10*3/uL (4.8-10.8)
[2024-05-12 06:48] LABS: ALKALINE PHOSPHATASE 134 U/L (46-116); BUN 11 mg/dl (9-23); CHLORIDE 100 mmol/L (98-107); CHOLESTEROL 147 mg/dL (<200); LDL CHOLESTEROL 69 mg/dL (9-159); POTASSIUM 3.9 mmol/L (3.4-5.1); SGPT/ALT 7 U/L (5-49); TOTAL PROTEIN 6.5 gm/dL (6.0-8.0); TRIGLYCERIDES 160 mg/dl (<150)
[2024-05-12 07:33] LABS: VITAMIN D, 25-HYDROXY 24.8 ng/mL (30-100)
[2024-05-12 08:00] VITALS: BP 147/98
[2024-05-12] MEDS ORDERED: Enoxaparin Sodium 40 MG/0.4 ML SYR SC SCH (10:00)
[2024-05-12] MEDS ORDERED: LORazepam 0.5 MG TAB PO PRN (11:00)
[2024-05-12 12:00] VITALS: BP 136/79
[2024-05-12 16:00] VITALS: BP 129/80
[2024-05-12 20:00] VITALS: BP 135/80
[2024-05-12] MEDS ORDERED: Vancomycin Hydrochloride 1,000 MG in SODIUM CHLORIDE 0.9% 250 ML IV SCH (22:00)
[2024-05-12] MEDS ORDERED: Insulin Glargine, Recombinan 1 UNIT/0.01 ML SC SCH (22:00)
[2024-05-13] VITALS: BP 138/88
[2024-05-13 06:42] LABS: BUN 11 mg/dl (9-23); CHLORIDE 103 mmol/L (98-107); POTASSIUM 4.2 mmol/L (3.4-5.1)
[2024-05-13 07:03] LABS: BASO # 0.1 10*3/uL (0.0-0.1); BASO % 0.6 % (0.0-1.0); EOS # 0.4 10*3/uL (0.0-0.4); EOS % 3.3 % (1.0-4.0); HEMATOCRIT 35.5 % (37.0-47.0); MEAN CELL VOLUME 88.5 fl (81.0-99.0); MEAN CORPUSCULAR HGB 29.4 pg (27.0-31.0); MEAN CORPUSCULAR HGB CONC 33.2 g/dl (33.0-37.0); MONO # 0.8 10*3/uL (0.1-1.0); NEUT # 7.9 10*3/uL (2.3-7.9); NEUT % 67.2 % (47.0-73.0); PLATELET COUNT AUTOMATED 576 10*3/uL (130-400); RED BLOOD COUNT 4.01 10*6/uL (4.10-5.10); RED CELL DISTRI WIDTH 11.9 % (0-14.5); WHITE BLOOD COUNT 11.7 10*3/uL (4.8-10.8)
[2024-05-13 08:00] VITALS: BP 134/84
[2024-05-13 12:00] VITALS: BP 143/90
[2024-05-13] MEDS ORDERED: VANCOMYCIN/WATER FOR INJ (PEG) 150 ML IV SCH (12:00)
[2024-05-13] MEDS ORDERED: AMOX-CLAV 875-1 EACH PO (13:50)
[2024-05-13] MEDS ORDERED: HYDROCODONE-AC1 EAC1 PO (13:50)
[2024-05-13] MEDS ORDERED: DOXYCYCLINE HY100 M3 PO (13:50)
[2024-05-13 17:06] LABS: HEMOGOLBIN A1C 14.7 % (4.8-5.6)
== END 2024-05-13 14:36 | disposition home or self-care (01) | DRG 853 ==
LOC: ED 09:24 → 4E 10:55 → EDHOLD 10:55 → 4E 20:19
PROVIDERS: Internal Medicine; Student in an Organized Health Care Education/Training Program; ADMIT Internal Medicine; ATTEND Internal Medicine
PROC: 0H9T0ZX Drainage of Right Breast, Open Approach, Diagnostic (ICD-10-PCS; principal; 2024-05-11)
DX: A41.9 Sepsis, unspecified organism (principal); E43 Unspecified severe protein-calorie malnutrition; L02.412 Cutaneous abscess of left axilla; E87.1 Hypo-osmolality and hyponatremia; N61.1 Abscess of the breast and nipple; E10.8 Type 1 diabetes mellitus with unspecified complications; F90.9 Attention-deficit hyperactivity disorder, unspecified type; F17.210 Nicotine dependence, cigarettes, uncomplicated; E10.65 Type 1 diabetes mellitus with hyperglycemia; D75.839 Thrombocytosis, unspecified; E55.9 Vitamin D deficiency, unspecified; E78.1 Pure hyperglyceridemia; Z79.899 Other long term (current) drug therapy; Z79.01 Long term (current) use of anticoagulants; Z79.2 Long term (current) use of antibiotics; Z82.49 Family history of ischemic heart disease and other diseases of the circulatory system; Z83.3 Family history of diabetes mellitus; Z71.6 Tobacco abuse counseling; Z80.8 Family history of malignant neoplasm of other organs or systems; Z68.25 Body mass index [BMI] 25.0-25.9, adult

== ENCOUNTER 2024-05-25 16:00 | Inpatient (IN) | payer SELFPAY ==
[~2024-05-25] VITALS: Ht 160 cm; Wt 64.0 kg
[~2024-05-25 16:00] MED LIST changes: +DOXYCYCLINE HY100 M3 PO; +HYDROCODONE-AC1 EAC1 PO
[2024-05-25 16:25] VITALS: BP 125/81
[2024-05-25] MEDS ORDERED: Acetaminophen/Oxycodone 5 MG/325 MG TABLET PO ONE (18:00)
[2024-05-25] MEDS ORDERED: Vancomycin Hydrochloride 250 ML IV ONE (18:05)
[2024-05-25] MEDS ORDERED: Piperacillin Sodium/Tazobact 100 ML IV ONE (18:05)
[2024-05-25 18:34] LABS: BASO # 0.1 10*3/uL (0.0-0.1); BASO % 0.5 % (0.0-1.0); EOS # 0.2 10*3/uL (0.0-0.4); EOS % 2.2 % (1.0-4.0); HEMATOCRIT 41.2 % (37.0-47.0); MEAN CELL VOLUME 87.5 fl (81.0-99.0); MEAN CORPUSCULAR HGB 29.5 pg (27.0-31.0); MEAN CORPUSCULAR HGB CONC 33.7 g/dl (33.0-37.0); MEAN PLATELET VOLUME 9.2 fl (9.6-12.3); MONO # 0.6 10*3/uL (0.1-1.0); MONO % 6.2 % (3.0-9.0); NEUT # 5.5 10*3/uL (2.3-7.9); PLATELET COUNT AUTOMATED 527 10*3/uL (130-400); RED BLOOD COUNT 4.71 10*6/uL (4.10-5.10); RED CELL DISTRI WIDTH 11.8 % (0-14.5); WHITE BLOOD COUNT 9.5 10*3/uL (4.8-10.8)
[2024-05-25 19:02] LABS: ALKALINE PHOSPHATASE 109 U/L (46-116); BUN 16 mg/dl (9-23); CHLORIDE 93 mmol/L (98-107); POTASSIUM 4.2 mmol/L (3.4-5.1); SGPT/ALT 7 U/L (5-49); TOTAL PROTEIN 6.9 gm/dL (6.0-8.0)
[2024-05-25] MEDS ORDERED: SODIUM CHLORIDE 0.9% 1,000 ML IV ONE (19:10)
[2024-05-25 19:49] VITALS: BP 134/85
[2024-05-25] MEDS ORDERED: INSULIN REGULAR, HUMAN 15 UNIT IV ONE (20:05)
[2024-05-25] MEDS ORDERED: IOHEXOL 300 MG/ML 100 ML VIAL IV ONE (20:05)
[2024-05-25] MEDS ORDERED: INSULIN REGULAR, HUMAN 1 UNIT/0.01 ML IV ONE (20:15)
[2024-05-25] MEDS ORDERED: VANCOMYCIN HYDROCHLORIDE IV SCH (22:55)
[2024-05-25] MEDS ORDERED: SODIUM CHLORIDE 0.9% IV SCH (22:55)
[2024-05-25] MEDS ORDERED: SODIUM CHLORIDE 0.9% 1,000 ML IV SCH (23:05)
[2024-05-26] VITALS (8 sets, daily range): BP systolic 84–144; BP diastolic 46–95
[2024-05-26] MEDS ORDERED: INSULIN REGULAR, HUMAN 1 UNIT/0.01 ML SC SCH
[2024-05-26] MEDS ORDERED: Piperacillin Sodium/Tazobact 50 ML IV SCH
[2024-05-26 06:00] LABS: BUN 12 mg/dl (9-23); CHLORIDE 102 mmol/L (98-107); POTASSIUM 3.4 mmol/L (3.4-5.1)
[2024-05-26 06:08] LABS: BASO # 0.1 10*3/uL (0.0-0.1); BASO % 0.6 % (0.0-1.0); EOS # 0.5 10*3/uL (0.0-0.4); EOS % 5.7 % (1.0-4.0); HEMATOCRIT 37.8 % (37.0-47.0); MEAN CELL VOLUME 88.1 fl (81.0-99.0); MEAN CORPUSCULAR HGB 30.1 pg (27.0-31.0); MEAN CORPUSCULAR HGB CONC 34.1 g/dl (33.0-37.0); MEAN PLATELET VOLUME 9.2 fl (9.6-12.3); MONO # 0.8 10*3/uL (0.1-1.0); MONO % 8.8 % (3.0-9.0); NEUT # 4.5 10*3/uL (2.3-7.9); NEUT % 49.3 % (47.0-73.0); PLATELET COUNT AUTOMATED 429 10*3/uL (130-400); RED BLOOD COUNT 4.29 10*6/uL (4.10-5.10)
[2024-05-26] MEDS ORDERED: Insulin Glargine, Recombinan 1 UNIT/0.01 ML SC SCH (10:00)
[2024-05-26] MEDS ORDERED: VANCOMYCIN HYDROCHLORIDE IV SCH (10:00)
[2024-05-26] MEDS ORDERED: SODIUM CHLORIDE 0.9% IV SCH (10:00)
[2024-05-26] MEDS ORDERED: Lactated Ringer's Solution 500 ML IV ONE (11:36)
[2024-05-26] MEDS ORDERED: BUPIVACAINE 0.5% 30 ML IV ONE (11:36)
[2024-05-26] MEDS ORDERED: Ketamine Hydrochloride 500 MG/10 ML VIAL IV ONE (12:52)
[2024-05-26] MEDS ORDERED: fentaNYL CITRATE 100 MCG/2 ML VIAL IV ONE (12:52)
[2024-05-26] MEDS ORDERED: PROPOFOL 200 MG/20 ML VIAL IV ONE (12:52)
[2024-05-26] MEDS ORDERED: Midazolam Hydrochloride 2 MG/2 ML VIAL IV ONE (12:52)
[2024-05-26] MEDS ORDERED: Ondansetron Hydrochloride 4 MG/2 ML VIAL IV ONE (12:52)
[2024-05-26] MEDS ORDERED: Ketorolac Tromethamine 15 MG/ML VIAL IV PRN (14:40)
[2024-05-26] MEDS ORDERED: Ketorolac Tromethamine 30 MG/ML VIAL IV ONE (14:40)
[2024-05-26] MEDS ORDERED: LANTUS100 UNIT/1 SC (15:25)
[2024-05-27] VITALS: BP 118/60
[2024-05-27 06:56] LABS: BASO % 0.3 % (0.0-1.0); EOS # 0.7 10*3/uL (0.0-0.4); EOS % 5.8 % (1.0-4.0); HEMATOCRIT 37.7 % (37.0-47.0); MEAN CELL VOLUME 89.8 fl (81.0-99.0); MEAN CORPUSCULAR HGB 29.3 pg (27.0-31.0); MEAN CORPUSCULAR HGB CONC 32.6 g/dl (33.0-37.0); MEAN PLATELET VOLUME 10.2 fl (9.6-12.3); MONO # 0.9 10*3/uL (0.1-1.0); NEUT # 8.9 10*3/uL (2.3-7.9); NEUT % 70.5 % (47.0-73.0); PLATELET COUNT AUTOMATED 357 10*3/uL (130-400); WHITE BLOOD COUNT 12.7 10*3/uL (4.8-10.8)
[2024-05-27 07:09] LABS: BUN 12 mg/dl (9-23); CHLORIDE 103 mmol/L (98-107)
[2024-05-27 08:00] VITALS: BP 126/84
[2024-05-27] MEDS ORDERED: Insulin Glargine, Recombinan 1 UNIT/0.01 ML SC SCH (10:00)
[2024-05-27] MEDS ORDERED: VANCOMYCIN HYDROCHLORIDE IV SCH (18:00)
[2024-05-27] MEDS ORDERED: SODIUM CHLORIDE 0.9% IV SCH (18:00)
== END 2024-05-27 11:15 | disposition left against medical advice (07) | DRG 571 ==
LOC: ED 16:00 → 4E 19:28 → EDHOLD 19:28 → 4E 05-26 13:17
PROVIDERS: Nurse Practitioner; ADMIT Internal Medicine; ATTEND Internal Medicine
PROC: 0JB60ZZ Excision of Chest Subcutaneous Tissue and Fascia, Open Approach (ICD-10-PCS; principal; 2024-05-26)
DX: N61.1 Abscess of the breast and nipple (principal); E46 Unspecified protein-calorie malnutrition; E10.65 Type 1 diabetes mellitus with hyperglycemia; Z53.29 Procedure and treatment not carried out because of patient's decision for other reasons; F17.210 Nicotine dependence, cigarettes, uncomplicated; Z79.899 Other long term (current) drug therapy; Z79.01 Long term (current) use of anticoagulants; Z83.3 Family history of diabetes mellitus; Z82.49 Family history of ischemic heart disease and other diseases of the circulatory system; Z80.8 Family history of malignant neoplasm of other organs or systems; Z68.25 Body mass index [BMI] 25.0-25.9, adult

== ENCOUNTER 2024-07-17 15:20 | Inpatient (IN) | payer SELFPAY ==
[~2024-07-17] VITALS: Ht 157.4 cm; Wt 59.0 kg
[2024-07-17 15:33] VITALS: BP 130/93
[2024-07-17] MEDS ORDERED: MORPHINE Sulfate 2 MG/ML SYR IV ONE (15:40)
[2024-07-17] MEDS ORDERED: Ondansetron Hydrochloride 4 MG/2 ML VIAL IV ONE (15:40)
[2024-07-17] MEDS ORDERED: SODIUM CHLORIDE 0.9% 1,000 ML IV ONE ×2 (15:40→16:50)
[2024-07-17 16:12] LABS: BASO # 0.1 10*3/uL (0.0-0.1); BASO % 0.3 % (0.0-1.0); EOS % 0.3 % (1.0-4.0); HEMATOCRIT 43.9 % (37.0-47.0); MEAN CELL VOLUME 83.8 fl (81.0-99.0); MEAN CORPUSCULAR HGB CONC 34.6 g/dl (33.0-37.0); MEAN PLATELET VOLUME 9.1 fl (9.6-12.3); MONO # 1.1 10*3/uL (0.1-1.0); MONO % 7.3 % (3.0-9.0); NEUT % 82.7 % (47.0-73.0); PLATELET COUNT AUTOMATED 562 10*3/uL (130-400); RED BLOOD COUNT 5.24 10*6/uL (4.10-5.10); RED CELL DISTRI WIDTH 12.1 % (0-14.5); WHITE BLOOD COUNT 14.5 10*3/uL (4.8-10.8)
[2024-07-17 16:21] LABS: VENOUS BLOOD GAS O2 SAT 78.3 % (60.0-85.0)
[2024-07-17 16:23] LABS: BILIRUBIN Negative (Negative); BLOOD Trace-Lysed (Negative); CLARITY Clear (Clear); COLOR Yellow (Yellow); GLUCOSE 3+ (Negative); KETONE 1+ (Negative); LEUKO ESTERASE Trace (Negative); NITRITE Negative (Negative); SPECIFIC GRAVITY >= 1.030 (1.001-1.030); UROBILINOGEN 0.2 E.U./dl (0.0-1.0)
[2024-07-17 16:39] LABS: BACTERIA 1+; FINE GRANULAR CAST 0-2; MUCOUS 1+; WBC 21-30 wbc/hpf (0-5)
[2024-07-17 16:40] LABS: ALKALINE PHOSPHATASE 133 U/L (46-116); BUN 26 mg/dl (9-23); CHLORIDE 90 mmol/L (98-107); POTASSIUM 4.2 mmol/L (3.4-5.1); SGPT/ALT 11 U/L (5-49); TOTAL PROTEIN 7.5 gm/dL (6.0-8.0)
[2024-07-17] MEDS ORDERED: cefTRIAXone Sodium 1 GM/10 ML SYR IV ONE (16:50)
[2024-07-17] MEDS ORDERED: INSULIN REGULAR, HUMAN 1 UNIT/0.01 ML IV ONE (16:50)
[2024-07-17 17:56] VITALS: BP 114/65
[2024-07-17] MEDS ORDERED: DEXTROSE 50% 25 GM/50 ML VIAL IV PRN (18:15)
[2024-07-17] MEDS ORDERED: LANTUS100 UNIT/1 SQ (18:32)
[2024-07-17 21:21] VITALS: BP 110/64
[2024-07-17] MEDS ORDERED: INSULIN REGULAR, HUMAN 1 UNIT/0.01 ML SC SCH (22:00)
[2024-07-17] MEDS ORDERED: Ondansetron Hydrochloride 4 MG/2 ML VIAL IV PRN (23:20)
[2024-07-18 00:04] VITALS: BP 103/56
[2024-07-18 01:39] VITALS: BP 116/69
[2024-07-18 03:23] VITALS: BP 119/71
[2024-07-18 06:08] LABS: BASO # 0.1 10*3/uL (0.0-0.1); BASO % 0.6 % (0.0-1.0); EOS # 0.3 10*3/uL (0.0-0.4); EOS % 3.2 % (1.0-4.0); HEMATOCRIT 42.8 % (37.0-47.0); MEAN CELL VOLUME 86.3 fl (81.0-99.0); MEAN CORPUSCULAR HGB 28.8 pg (27.0-31.0); MEAN CORPUSCULAR HGB CONC 33.4 g/dl (33.0-37.0); MEAN PLATELET VOLUME 9.2 fl (9.6-12.3); MONO # 0.9 10*3/uL (0.1-1.0); MONO % 9.4 % (3.0-9.0); NEUT # 4.9 10*3/uL (2.3-7.9); NEUT % 53.8 % (47.0-73.0); PLATELET COUNT AUTOMATED 455 10*3/uL (130-400); RED BLOOD COUNT 4.96 10*6/uL (4.10-5.10); RED CELL DISTRI WIDTH 12.4 % (0-14.5); WHITE BLOOD COUNT 9.1 10*3/uL (4.8-10.8)
[2024-07-18 06:58] LABS: ALKALINE PHOSPHATASE 91 U/L (46-116); CHLORIDE 99 mmol/L (98-107); POTASSIUM 4.4 mmol/L (3.4-5.1); SGPT/ALT 10 U/L (5-49); TOTAL PROTEIN 6.2 gm/dL (6.0-8.0)
[2024-07-18 07:01] LABS: BUN 14 mg/dl (9-23)
[2024-07-18 07:30] VITALS: BP 141/93
[2024-07-18] MEDS ORDERED: DEXTROSE 10 % IN WATER 250 ML IV PRN (10:00)
[2024-07-18] MEDS ORDERED: CEFTRIAXONE SODIUM IV SCH (11:00)
[2024-07-18] MEDS ORDERED: INFUSION IV SCH (11:00)
[2024-07-18] MEDS ORDERED: INSULIN LISPRO 1 UNIT/0.01 ML SQ SCH (11:30)
[2024-07-18] MEDS ORDERED: Insulin Glargine, Recombinan 1 UNIT/0.01 ML SC SCH (22:00)
== END 2024-07-18 16:50 | disposition left against medical advice (07) | DRG 871 ==
LOC: ED 15:20 → EDHOLD 17:12
PROVIDERS: Physician Assistant Medical; ADMIT Internal Medicine; ATTEND Internal Medicine
DX: A41.9 Sepsis, unspecified organism (principal); E11.10 Type 2 diabetes mellitus with ketoacidosis without coma; N30.01 Acute cystitis with hematuria; F17.210 Nicotine dependence, cigarettes, uncomplicated; Z53.29 Procedure and treatment not carried out because of patient's decision for other reasons; Z79.4 Long term (current) use of insulin; Z79.01 Long term (current) use of anticoagulants; Z83.3 Family history of diabetes mellitus; Z82.49 Family history of ischemic heart disease and other diseases of the circulatory system; Z80.8 Family history of malignant neoplasm of other organs or systems; Z80.0 Family history of malignant neoplasm of digestive organs

== ENCOUNTER 2024-08-06 14:52 | Emergency (ER) | payer SELFPAY ==
[~2024-08-06] VITALS: Ht 157.4 cm; Wt 56.2 kg
[~2024-08-06 14:52] MED LIST changes: +LANTUS100 UNIT/1 SQ
[2024-08-06 15:03] VITALS: BP 141/93
[2024-08-06] MEDS ORDERED: SODIUM CHLORIDE 0.9% 1,000 ML IV ONE (15:10)
[2024-08-06 15:23] LABS: BASO % 0.5 % (0.0-1.0); EOS # 0.2 10*3/uL (0.0-0.4); EOS % 1.9 % (1.0-4.0); HEMATOCRIT 40.8 % (37.0-47.0); MEAN CELL VOLUME 87.4 fl (81.0-99.0); MEAN CORPUSCULAR HGB 29.1 pg (27.0-31.0); MEAN CORPUSCULAR HGB CONC 33.3 g/dl (33.0-37.0); MEAN PLATELET VOLUME 9.2 fl (9.6-12.3); MONO # 0.5 10*3/uL (0.1-1.0); MONO % 6.9 % (3.0-9.0); NEUT # 5.1 10*3/uL (2.3-7.9); NEUT % 64.7 % (47.0-73.0); PLATELET COUNT AUTOMATED 405 10*3/uL (130-400); RED BLOOD COUNT 4.67 10*6/uL (4.10-5.10); RED CELL DISTRI WIDTH 12.5 % (0-14.5); WHITE BLOOD COUNT 7.8 10*3/uL (4.8-10.8)
[2024-08-06 16:02] LABS: BUN 10 mg/dl (9-23); CHLORIDE 91 mmol/L (98-107); POTASSIUM 3.9 mmol/L (3.4-5.1)
[2024-08-06] MEDS ORDERED: SODIUM CHLORIDE 0.9% 1,000 ML IV SCH (16:05)
[2024-08-06] MEDS ORDERED: INSULIN REGULAR, HUMAN 1 UNIT/0.01 ML IV ONE ×2 (16:20→19:20)
[2024-08-06 16:24] LABS: BILIRUBIN Negative (Negative); BLOOD Trace-Intact (Negative); CLARITY Clear (Clear); COLOR Yellow (Yellow); GLUCOSE 3+ (Negative); KETONE Negative (Negative); LEUKO ESTERASE Negative (Negative); NITRITE Negative (Negative); PH 5.5 (4.5-8.0); SPECIFIC GRAVITY >= 1.030 (1.001-1.030); UROBILINOGEN 0.2 E.U./dl (0.0-1.0)
[2024-08-06 16:35] LABS: WBC 0-2 wbc/hpf (0-5)
== END 2024-08-06 20:15 | disposition home or self-care (01) ==
LOC: ED 14:52
PROVIDERS: Nurse Practitioner Family
DX: E10.65 Type 1 diabetes mellitus with hyperglycemia (principal); Z79.4 Long term (current) use of insulin

== ENCOUNTER 2024-08-24 08:27 | Inpatient (IN) | payer SELFPAY ==
[~2024-08-24] VITALS: Ht 157.5 cm; Wt 54.9 kg
[2024-08-24 08:33] VITALS: BP 137/91
[2024-08-24] MEDS ORDERED: SODIUM CHLORIDE 0.9% 1,000 ML IV ONE (08:50)
[2024-08-24 09:03] LABS: BILIRUBIN Negative (Negative); BLOOD 2+ (Negative); CLARITY Clear (Clear); COLOR Yellow (Yellow); GLUCOSE 3+ (Negative); KETONE 4+ (Negative); LEUKO ESTERASE Negative (Negative); NITRITE Negative (Negative); SPECIFIC GRAVITY >= 1.030 (1.001-1.030); UROBILINOGEN 0.2 E.U./dl (0.0-1.0)
[2024-08-24 09:11] LABS: BASO # 0.1 10*3/uL (0.0-0.1); BASO % 0.6 % (0.0-1.0); EOS % 0.1 % (1.0-4.0); HEMATOCRIT 43.9 % (37.0-47.0); MEAN CELL VOLUME 86.8 fl (81.0-99.0); MEAN CORPUSCULAR HGB 29.1 pg (27.0-31.0); MEAN CORPUSCULAR HGB CONC 33.5 g/dl (33.0-37.0); MEAN PLATELET VOLUME 8.9 fl (9.6-12.3); MONO # 0.3 10*3/uL (0.1-1.0); MONO % 2.6 % (3.0-9.0); NEUT # 8.6 10*3/uL (2.3-7.9); NEUT % 80.1 % (47.0-73.0); PLATELET COUNT AUTOMATED 486 10*3/uL (130-400); RED BLOOD COUNT 5.06 10*6/uL (4.10-5.10); RED CELL DISTRI WIDTH 12.7 % (0-14.5); WHITE BLOOD COUNT 10.7 10*3/uL (4.8-10.8)
[2024-08-24 09:40] LABS: ALKALINE PHOSPHATASE 132 U/L (46-116); BUN 15 mg/dl (9-23); CHLORIDE 92 mmol/L (98-107); LIPASE 48 U/L (12-53); POTASSIUM 3.7 mmol/L (3.4-5.1); SGPT/ALT 16 U/L (5-49)
[2024-08-24 09:43] LABS: BACTERIA 2+; WBC 0-2 wbc/hpf (0-5)
[2024-08-24 09:44] LABS: YEAST TRACE
[2024-08-24] MEDS ORDERED: INSULIN REGULAR, HUMAN 1 UNIT/0.01 ML IV ONE (10:10)
[2024-08-24] MEDS ORDERED: Ondansetron Hydrochloride 4 MG/2 ML VIAL IV ONE ×2 (10:10→16:30)
[2024-08-24] MEDS ORDERED: BISACODYL 5 MG TAB PO PRN (11:40)
[2024-08-24] MEDS ORDERED: ACETAMINOPHEN 325 MG TAB PO PRN (11:40)
[2024-08-24] MEDS ORDERED: BISACODYL 10 MG SUPP R PRN (11:40)
[2024-08-24] MEDS ORDERED: Ondansetron Hydrochloride 4 MG/2 ML VIAL IV PRN ×2 (11:40→16:40)
[2024-08-24] MEDS ORDERED: MORPHINE Sulfate 2 MG/ML SYR IV PRN (11:40)
[2024-08-24] MEDS ORDERED: Acetaminophen/Hydrocodone 5 MG/325 MG TABLET PO PRN (11:40)
[2024-08-24] MEDS ORDERED: Magnesium Hydroxide 30 ML UDC PO PRN (11:40)
[2024-08-24] MEDS ORDERED: POTASSIUM CHLORIDE 20 MEQ/100 ML BAG IV PRN (11:55)
[2024-08-24] MEDS ORDERED: POTASSIUM CHLORIDE 20 MEQ TAB PO PRN (11:55)
[2024-08-24] MEDS ORDERED: SODIUM CHLORIDE 0.9% 1,000 ML IV SCH (11:55)
[2024-08-24] MEDS ORDERED: INSULIN REGULAR IN 0.9 % NACL 100 ML IV SCH (11:55)
[2024-08-24 12:00] VITALS: BP 146/83
[2024-08-24 12:30] VITALS: BP 146/83
[2024-08-24 13:06] LABS: BUN 12 mg/dl (9-23); CHLORIDE 97 mmol/L (98-107); POTASSIUM 3.4 mmol/L (3.4-5.1)
[2024-08-24 16:00] VITALS: BP 121/62
[2024-08-24 16:03] LABS: BUN 13 mg/dl (9-23); CHLORIDE 101 mmol/L (98-107)
[2024-08-24] MEDS ORDERED: POTASSIUM CL D5/.45NS SOL. 1,000 ML IV SCH (16:35)
[2024-08-24 18:38] LABS: BUN 14 mg/dl (9-23); CHLORIDE 102 mmol/L (98-107); POTASSIUM 2.8 mmol/L (3.4-5.1)
[2024-08-24] MEDS ORDERED: POTASSIUM CHLORIDE IN WATER 100 ML IV SCH ×2 (19:00→23:00)
[2024-08-24 20:00] VITALS: BP 122/74
[2024-08-24] MEDS ORDERED: Ondansetron Hydrochloride 4 MG/2 ML VIAL IV SCH (20:00)
[2024-08-24 22:40] LABS: BUN 14 mg/dl (9-23); CHLORIDE 98 mmol/L (98-107)
[2024-08-24 22:41] LABS: POTASSIUM 4.1 mmol/L (3.4-5.1)
[2024-08-25] VITALS: BP 114/69
[2024-08-25 02:34] LABS: BUN 12 mg/dl (9-23); CHLORIDE 102 mmol/L (98-107); POTASSIUM 3.9 mmol/L (3.4-5.1)
[2024-08-25 04:00] VITALS: BP 114/69
[2024-08-25] MEDS ORDERED: POTASSIUM CHLORIDE IN WATER 100 ML IV SCH (04:00)
[2024-08-25] MEDS ORDERED: Pantoprazole Sodium 40 MG TAB PO SCH (06:00)
[2024-08-25 06:45] LABS: BUN 12 mg/dl (9-23); CHLORIDE 102 mmol/L (98-107); POTASSIUM 4.1 mmol/L (3.4-5.1)
[2024-08-25 06:46] LABS: BASO # 0.1 10*3/uL (0.0-0.1); BASO % 0.4 % (0.0-1.0); EOS # 0.1 10*3/uL (0.0-0.4); EOS % 0.6 % (1.0-4.0); HEMATOCRIT 38.2 % (37.0-47.0); MEAN CELL VOLUME 85.7 fl (81.0-99.0); MEAN CORPUSCULAR HGB 29.4 pg (27.0-31.0); MEAN CORPUSCULAR HGB CONC 34.3 g/dl (33.0-37.0); MONO # 1.5 10*3/uL (0.1-1.0); MONO % 9.2 % (3.0-9.0); NEUT # 10.6 10*3/uL (2.3-7.9); NEUT % 65.4 % (47.0-73.0); PLATELET COUNT AUTOMATED 501 10*3/uL (130-400); RED BLOOD COUNT 4.46 10*6/uL (4.10-5.10); RED CELL DISTRI WIDTH 13.2 % (0-14.5); WHITE BLOOD COUNT 16.2 10*3/uL (4.8-10.8)
[2024-08-25] MEDS ORDERED: Insulin Glargine, Recombinan 1 UNIT/0.01 ML SC ONE (06:55)
[2024-08-25 08:00] VITALS: BP 124/75
[2024-08-25] MEDS ORDERED: Enoxaparin Sodium 40 MG/0.4 ML SYR SC SCH (10:00)
[2024-08-25 10:17] LABS: BUN 10 mg/dl (9-23); CHLORIDE 98 mmol/L (98-107); POTASSIUM 4.1 mmol/L (3.4-5.1)
[2024-08-25] MEDS ORDERED: DEXTROSE 10 % IN WATER 250 ML IV PRN (11:00)
[2024-08-25] MEDS ORDERED: INSULIN LISPRO 1 UNIT/0.01 ML SQ SCH (11:30)
[2024-08-25 12:00] VITALS: BP 118/77
[2024-08-25 14:27] LABS: BUN 14 mg/dl (9-23); CHLORIDE 99 mmol/L (98-107); POTASSIUM 4.4 mmol/L (3.4-5.1)
[2024-08-25 16:00] VITALS: BP 126/77
[2024-08-25 18:29] LABS: BUN 13 mg/dl (9-23); CHLORIDE 100 mmol/L (98-107); POTASSIUM 3.8 mmol/L (3.4-5.1)
[2024-08-25 20:00] VITALS: BP 109/60
[2024-08-26 04:00] VITALS: BP 120/90
[2024-08-26 04:28] LABS: BASO # 0.1 10*3/uL (0.0-0.1); BASO % 0.4 % (0.0-1.0); EOS # 0.3 10*3/uL (0.0-0.4); EOS % 2.1 % (1.0-4.0); HEMATOCRIT 36.1 % (37.0-47.0); MEAN CELL VOLUME 87.4 fl (81.0-99.0); MEAN CORPUSCULAR HGB 29.1 pg (27.0-31.0); MEAN CORPUSCULAR HGB CONC 33.2 g/dl (33.0-37.0); MEAN PLATELET VOLUME 8.5 fl (9.6-12.3); MONO # 0.8 10*3/uL (0.1-1.0); MONO % 7.2 % (3.0-9.0); NEUT # 7.3 10*3/uL (2.3-7.9); NEUT % 62.4 % (47.0-73.0); PLATELET COUNT AUTOMATED 388 10*3/uL (130-400); RED BLOOD COUNT 4.13 10*6/uL (4.10-5.10); WHITE BLOOD COUNT 11.7 10*3/uL (4.8-10.8)
[2024-08-26 08:00] VITALS: BP 132/99
[2024-08-26] MEDS ORDERED: HUMALOG100 UNIT/1 SC (10:52)
[2024-08-26] MEDS ORDERED: LANTUS100 UNIT/1 SQ (10:53)
[2024-08-27 11:04] LABS: HEMOGOLBIN A1C >15.5 % (4.8-5.6)
== END 2024-08-26 11:49 | disposition home or self-care (01) | DRG 637 ==
LOC: ED 08:27 → EDHOLD 10:30 → ICCU 10:30
PROVIDERS: Internal Medicine; Student in an Organized Health Care Education/Training Program; ADMIT Family Medicine; ATTEND Family Medicine
DX: E10.10 Type 1 diabetes mellitus with ketoacidosis without coma (principal); E43 Unspecified severe protein-calorie malnutrition; D75.839 Thrombocytosis, unspecified; E87.8 Other disorders of electrolyte and fluid balance, not elsewhere classified; E55.9 Vitamin D deficiency, unspecified; F17.210 Nicotine dependence, cigarettes, uncomplicated; Z71.6 Tobacco abuse counseling; Z68.22 Body mass index [BMI] 22.0-22.9, adult; Z83.3 Family history of diabetes mellitus; Z82.49 Family history of ischemic heart disease and other diseases of the circulatory system; Z80.0 Family history of malignant neoplasm of digestive organs; Z79.4 Long term (current) use of insulin

== ENCOUNTER 2024-11-02 13:47 | Inpatient (IN) | payer SELFPAY ==
[~2024-11-02] VITALS: Ht 157.4 cm; Wt 56.2 kg
[~2024-11-02 13:47] MED LIST changes: +HUMALOG100 UNIT/1 SC
[2024-11-02 13:59] VITALS: BP 116/91
[2024-11-02 14:29] LABS: BASO # 0.1 10*3/uL (0.0-0.1); BASO % 0.4 % (0.0-1.0); EOS % 0.2 % (1.0-4.0); HEMATOCRIT 43.2 % (37.0-47.0); MEAN CELL VOLUME 83.9 fl (81.0-99.0); MEAN CORPUSCULAR HGB 29.5 pg (27.0-31.0); MEAN CORPUSCULAR HGB CONC 35.2 g/dl (33.0-37.0); MEAN PLATELET VOLUME 8.8 fl (9.6-12.3); MONO # 1.2 10*3/uL (0.1-1.0); MONO % 9.8 % (3.0-9.0); NEUT # 8.3 10*3/uL (2.3-7.9); NEUT % 67.8 % (47.0-73.0); PLATELET COUNT AUTOMATED 473 10*3/uL (130-400); RED BLOOD COUNT 5.15 10*6/uL (4.10-5.10); WHITE BLOOD COUNT 12.2 10*3/uL (4.8-10.8)
[2024-11-02 14:33] LABS: VENOUS BLOOD GAS O2 SAT 89.5 % (60.0-85.0)
[2024-11-02] MEDS ORDERED: SODIUM CHLORIDE 0.9% 1,000 ML IV SCH (14:35)
[2024-11-02 14:50] LABS: BUN 26 mg/dl (9-23); CHLORIDE 90 mmol/L (98-107); POTASSIUM 3.3 mmol/L (3.4-5.1)
[2024-11-02] MEDS ORDERED: Ondansetron Hydrochloride 4 MG/2 ML VIAL IV ONE (14:50)
[2024-11-02 14:56] LABS: BILIRUBIN Negative (Negative); BLOOD Trace-Lysed (Negative); CLARITY Cloudy (Clear); COLOR Yellow (Yellow); GLUCOSE 3+ (Negative); KETONE 2+ (Negative); LEUKO ESTERASE Negative (Negative); NITRITE Negative (Negative); SPECIFIC GRAVITY >= 1.030 (1.001-1.030); UROBILINOGEN 0.2 E.U./dl (0.0-1.0)
[2024-11-02 15:02] LABS: BACTERIA 2+; EPITHELIAL CELLS TNTC
[2024-11-02 15:03] LABS: HYALINE CAST 0-2; YEAST TRACE
[2024-11-02] MEDS ORDERED: cefTRIAXone Sodium 1 GM/10 ML SYR IV ONE (15:30)
[2024-11-02] MEDS ORDERED: Promethazine Hydrochloride 25 MG/ML VIAL IV ONE (15:55)
[2024-11-02] MEDS ORDERED: Ketorolac Tromethamine 30 MG/ML VIAL IV ONE (15:55)
[2024-11-02] MEDS ORDERED: MORPHINE Sulfate 2 MG/ML SYR IV PRN (16:40)
[2024-11-02] MEDS ORDERED: ACETAMINOPHEN 325 MG TAB PO PRN (16:40)
[2024-11-02] MEDS ORDERED: Acetaminophen/Hydrocodone 5 MG/325 MG TABLET PO PRN (16:40)
[2024-11-02] MEDS ORDERED: BISACODYL 5 MG TAB PO PRN (16:40)
[2024-11-02] MEDS ORDERED: ACETAMINOPHEN 650 MG SUPP R PRN (16:40)
[2024-11-02] MEDS ORDERED: Ondansetron Hydrochloride 4 MG/2 ML VIAL IV PRN (16:40)
[2024-11-02] MEDS ORDERED: Magnesium Hydroxide 30 ML UDC PO PRN (16:40)
[2024-11-02] MEDS ORDERED: BISACODYL 10 MG SUPP R PRN (16:40)
[2024-11-02] MEDS ORDERED: DEXTROSE 50% 25 GM/50 ML VIAL IV PRN (16:50)
[2024-11-02] MEDS ORDERED: POTASSIUM CHLORIDE 10 MEQ TAB PO ONE (16:55)
[2024-11-02 18:03] VITALS: BP 146/103
[2024-11-02] MEDS ORDERED: Scopolamine 1 PATCH PATCH T SCH (19:00)
[2024-11-02] MEDS ORDERED: INSULIN LISPRO 1 UNIT/0.01 ML SQ SCH (22:00)
[2024-11-02 22:47] VITALS: BP 184/92
[2024-11-02 23:07] LABS: BUN 27 mg/dl (9-23); CHLORIDE 91 mmol/L (98-107); POTASSIUM 3.2 mmol/L (3.4-5.1)
[2024-11-02] MEDS ORDERED: POTASSIUM CHLORIDE 20 MEQ in SODIUM CHLORIDE 0.45% 1,000 ML IV SCH (23:35)
[2024-11-02] MEDS ORDERED: Insulin Glargine, Recombinan 1 UNIT/0.01 ML SC SCH (23:55)
[2024-11-02 23:58] VITALS: BP 111/73
[2024-11-03] VITALS (9 sets, daily range): BP systolic 123–159; BP diastolic 71–118
[2024-11-03] MEDS ORDERED: POTASSIUM CHLORIDE IN WATER 100 ML IV SCH
[2024-11-03] MEDS ORDERED: SODIUM CHLORIDE 0.45% 1,000 ML IV ONE (00:08)
[2024-11-03] MEDS ORDERED: SODIUM CHLORIDE 0.9% 1,000 ML IV ONE (00:55)
[2024-11-03] MEDS ORDERED: POTASSIUM CHLORIDE 20 MEQ TAB PO PRN (01:25)
[2024-11-03] MEDS ORDERED: INSULIN REGULAR IN 0.9 % NACL 100 ML IV SCH (01:25)
[2024-11-03] MEDS ORDERED: POTASSIUM CHLORIDE 20 MEQ/100 ML BAG IV PRN (01:25)
[2024-11-03] MEDS ORDERED: SODIUM CHLORIDE 0.9% 1,000 ML IV SCH (01:30)
[2024-11-03 03:58] LABS: BUN 25 mg/dl (9-23); CHLORIDE 98 mmol/L (98-107); POTASSIUM 2.9 mmol/L (3.4-5.1)
[2024-11-03] MEDS ORDERED: DEXTROSE 5% SALINE 0.45% 1,000 ML IV SCH (04:15)
[2024-11-03 06:27] LABS: BUN 20 mg/dl (9-23); CHLORIDE 97 mmol/L (98-107); POTASSIUM 3.1 mmol/L (3.4-5.1)
[2024-11-03 06:29] LABS: BUN 20 mg/dl (9-23); CHLORIDE 98 mmol/L (98-107)
[2024-11-03 06:40] LABS: BASO # 0.1 10*3/uL (0.0-0.1); BASO % 0.3 % (0.0-1.0); EOS % 0.1 % (1.0-4.0); HEMATOCRIT 39.6 % (37.0-47.0); MEAN CORPUSCULAR HGB 29.8 pg (27.0-31.0); MEAN CORPUSCULAR HGB CONC 33.3 g/dl (33.0-37.0); MEAN PLATELET VOLUME 9.1 fl (9.6-12.3); MONO # 1.2 10*3/uL (0.1-1.0); MONO % 8.6 % (3.0-9.0); NEUT # 10.4 10*3/uL (2.3-7.9); NEUT % 71.6 % (47.0-73.0); PLATELET COUNT AUTOMATED 438 10*3/uL (130-400); RED BLOOD COUNT 4.43 10*6/uL (4.10-5.10); RED CELL DISTRI WIDTH 12.2 % (0-14.5); WHITE BLOOD COUNT 14.5 10*3/uL (4.8-10.8)
[2024-11-03 06:41] LABS: MEAN CELL VOLUME 89.4 fl (81.0-99.0)
[2024-11-03] MEDS ORDERED: Insulin Glargine, Recombinan 1 UNIT/0.01 ML SC ONE ×2 (06:50→21:50)
[2024-11-03] MEDS ORDERED: Enoxaparin Sodium 40 MG/0.4 ML SYR SC SCH (10:00)
[2024-11-03] MEDS ORDERED: IOHEXOL 300 MG/ML 100 ML VIAL IV ONE (11:15)
[2024-11-03] MEDS ORDERED: cefTRIAXone Sodium 1 GM in SYRINGE INFUSION 10 ML IV SCH (15:00)
[2024-11-03 15:36] LABS: BUN 17 mg/dl (9-23); CHLORIDE 97 mmol/L (98-107); POTASSIUM 3.6 mmol/L (3.4-5.1)
[2024-11-03] MEDS ORDERED: Insulin Glargine, Recombinan 1 UNIT/0.01 ML SC SCH (22:00)
[2024-11-04 06:39] LABS: BASO # 0.1 10*3/uL (0.0-0.1); BASO % 0.5 % (0.0-1.0); EOS # 0.3 10*3/uL (0.0-0.4); EOS % 2.5 % (1.0-4.0); HEMATOCRIT 39.6 % (37.0-47.0); MEAN CORPUSCULAR HGB 29.5 pg (27.0-31.0); MEAN CORPUSCULAR HGB CONC 32.8 g/dl (33.0-37.0); MEAN PLATELET VOLUME 9.2 fl (9.6-12.3); MONO # 0.9 10*3/uL (0.1-1.0); MONO % 8.5 % (3.0-9.0); NEUT # 6.9 10*3/uL (2.3-7.9); NEUT % 61.9 % (47.0-73.0); PLATELET COUNT AUTOMATED 418 10*3/uL (130-400); WHITE BLOOD COUNT 11.1 10*3/uL (4.8-10.8)
[2024-11-04 06:55] LABS: BUN 10 mg/dl (9-23); CHLORIDE 98 mmol/L (98-107); POTASSIUM 3.5 mmol/L (3.4-5.1)
[2024-11-04 07:52] VITALS: BP 124/81
[2024-11-04 11:15] VITALS: BP 120/71
[2024-11-04] MEDS ORDERED: Ondansetron4 MG PO (13:44)
[2024-11-05] MEDS ORDERED: Pantoprazole Sodium 40 MG TAB PO SCH (06:00)
== END 2024-11-04 15:37 | disposition home or self-care (01) | DRG 872 ==
LOC: ED 13:47 → EDHOLD 16:10
PROVIDERS: Internal Medicine; Student in an Organized Health Care Education/Training Program; ADMIT Internal Medicine; ATTEND Internal Medicine
DX: A41.9 Sepsis, unspecified organism (principal); N30.01 Acute cystitis with hematuria; E87.1 Hypo-osmolality and hyponatremia; E87.3 Alkalosis; N12 Tubulo-interstitial nephritis, not specified as acute or chronic; E86.0 Dehydration; E87.8 Other disorders of electrolyte and fluid balance, not elsewhere classified; E87.6 Hypokalemia; E10.65 Type 1 diabetes mellitus with hyperglycemia; E55.9 Vitamin D deficiency, unspecified; F17.210 Nicotine dependence, cigarettes, uncomplicated; K20.90 Esophagitis, unspecified without bleeding; Z83.3 Family history of diabetes mellitus; Z82.49 Family history of ischemic heart disease and other diseases of the circulatory system; Z79.4 Long term (current) use of insulin; Z71.6 Tobacco abuse counseling

== ENCOUNTER 2024-11-17 09:44 | Inpatient (IN) | payer SELFPAY ==
[~2024-11-17] VITALS: Ht 157.4 cm; Wt 60.3 kg
[~2024-11-17 09:44] MED LIST changes: +Ondansetron4 MG PO
[2024-11-17 10:00] VITALS: BP 152/99
[2024-11-17] MEDS ORDERED: SODIUM CHLORIDE 0.9% 1,000 ML IV ONE ×2 (10:10→13:14)
[2024-11-17] MEDS ORDERED: Ondansetron Hydrochloride 4 MG/2 ML VIAL IV ONE (10:10)
[2024-11-17] MEDS ORDERED: INSULIN REGULAR, HUMAN 1 UNIT/0.01 ML IV ONE (10:15)
[2024-11-17 10:43] LABS: BASO # 0.1 10*3/uL (0.0-0.1); BASO % 0.5 % (0.0-1.0); EOS % 0.1 % (1.0-4.0); HEMATOCRIT 48.8 % (37.0-47.0); MEAN CELL VOLUME 90.9 fl (81.0-99.0); MEAN CORPUSCULAR HGB 29.1 pg (27.0-31.0); MONO # 0.3 10*3/uL (0.1-1.0); MONO % 2.5 % (3.0-9.0); NEUT # 11.8 10*3/uL (2.3-7.9); NEUT % 87.5 % (47.0-73.0); PLATELET COUNT AUTOMATED 620 10*3/uL (130-400); RED BLOOD COUNT 5.37 10*6/uL (4.10-5.10); RED CELL DISTRI WIDTH 12.3 % (0-14.5); WHITE BLOOD COUNT 13.5 10*3/uL (4.8-10.8)
[2024-11-17] MEDS ORDERED: Metoclopramide Hydrochloride 10 MG/2 ML VIAL IV ONE (10:55)
[2024-11-17] MEDS ORDERED: diphenhydrAMINE hydrochloride 50 MG/ML VIAL IV ONE (10:55)
[2024-11-17 10:59] LABS: BILIRUBIN Negative (Negative); BLOOD Trace-Lysed (Negative); CLARITY Cloudy (Clear); COLOR Yellow (Yellow); GLUCOSE 3+ (Negative); KETONE 4+ (Negative); LEUKO ESTERASE Negative (Negative); NITRITE Negative (Negative); SPECIFIC GRAVITY >= 1.030 (1.001-1.030); UROBILINOGEN 0.2 E.U./dl (0.0-1.0)
[2024-11-17 11:06] LABS: URINE AMPHETAMINES Negative (1000ng/ml); URINE BARBITURATES Negative (200ng/ml); URINE BENZODIAZEPINES Negative (200ng/ml); URINE CANNABINOIDS (THC) Positive (50ng/ml); URINE COCAINE Negative (300ng/ml); URINE METHADONE Negative (300ng/ml); URINE OPIATES Negative (300ng/ml); URINE PHENCYCLIDINE Negative (25ng/ml)
[2024-11-17 11:23] LABS: EPITHELIAL CELLS TNTC
[2024-11-17 11:24] LABS: BACTERIA 2+; RBC 0-2 rbc/hpf (0-2)
[2024-11-17 11:56] LABS: ALKALINE PHOSPHATASE 107 U/L (46-116); BUN 16 mg/dl (9-23); CHLORIDE 92 mmol/L (98-107); LIPASE 38 U/L (12-53); POTASSIUM 3.1 mmol/L (3.4-5.1); SGPT/ALT 12 U/L (5-49); TOTAL PROTEIN 7.3 gm/dL (6.0-8.0)
[2024-11-17 12:00] VITALS: BP 132/92
[2024-11-17 12:02] LABS: ETHYL ALCOHOL < 3.0 mg/dl (<3)
[2024-11-17] MEDS ORDERED: INSULIN REGULAR IN 0.9 % NACL 100 ML IV SCH ×2 (12:40→13:05)
[2024-11-17] MEDS ORDERED: cefTRIAXone Sodium 1 GM/10 ML SYR IV ONE (12:55)
[2024-11-17 13:00] VITALS: BP 145/87
[2024-11-17] MEDS ORDERED: POTASSIUM CHLORIDE IN WATER 100 ML IV SCH ×2 (13:00→17:00)
[2024-11-17] MEDS ORDERED: DEXTROSE 50% 25 GM/50 ML VIAL IV PRN (13:05)
[2024-11-17] MEDS ORDERED: POTASSIUM CHLORIDE 20 MEQ TAB PO PRN (13:05)
[2024-11-17] MEDS ORDERED: POTASSIUM CHLORIDE 20 MEQ/100 ML BAG IV PRN (13:05)
[2024-11-17] MEDS ORDERED: Ondansetron Hydrochloride 4 MG/2 ML VIAL IV PRN (13:15)
[2024-11-17] MEDS ORDERED: SODIUM CHLORIDE 0.9% 1,000 ML IV SCH (13:20)
[2024-11-17] MEDS ORDERED: SODIUM CHLORIDE 0.9% 500 ML IV ONE (13:23)
[2024-11-17 16:01] LABS: BUN 12 mg/dl (9-23); CHLORIDE 100 mmol/L (98-107)
[2024-11-17 16:06] LABS: POTASSIUM 4.4 mmol/L (3.4-5.1)
[2024-11-17 16:36] VITALS: BP 149/84
[2024-11-17] MEDS ORDERED: ACETAMINOPHEN 325 MG TAB PO ONE (16:45)
[2024-11-17] MEDS ORDERED: DEXTROSE 5% SALINE 0.45% 1,000 ML IV SCH (18:40)
[2024-11-17 19:25] VITALS: BP 136/72
[2024-11-17 19:46] LABS: BUN 12 mg/dl (9-23); CHLORIDE 104 mmol/L (98-107); POTASSIUM 4.9 mmol/L (3.4-5.1)
[2024-11-17] MEDS ORDERED: Scopolamine 1 PATCH PATCH T SCH (20:25)
[2024-11-17 21:40] VITALS: BP 132/76
[2024-11-17] MEDS ORDERED: Insulin Glargine, Recombinan 1 UNIT/0.01 ML SC SCH (22:00)
[2024-11-17 23:22] LABS: BUN 12 mg/dl (9-23); CHLORIDE 104 mmol/L (98-107)
[2024-11-17 23:23] LABS: POTASSIUM 3.8 mmol/L (3.4-5.1)
[2024-11-18 00:27] VITALS: BP 137/87
[2024-11-18] MEDS ORDERED: POTASSIUM CHLORIDE IN WATER 100 ML IV SCH (01:00)
[2024-11-18] MEDS ORDERED: DEXTROSE 50% 25 GM/50 ML VIAL IV PRN (01:05)
[2024-11-18] MEDS ORDERED: POTASSIUM CHLORIDE 20 MEQ TAB PO ONE (01:30)
[2024-11-18 04:26] VITALS: BP 129/72
[2024-11-18 06:51] LABS: BASO # 0.1 10*3/uL (0.0-0.1); BASO % 0.3 % (0.0-1.0); EOS # 0.2 10*3/uL (0.0-0.4); EOS % 1.2 % (1.0-4.0); HEMATOCRIT 38.1 % (37.0-47.0); MEAN CORPUSCULAR HGB 29.7 pg (27.0-31.0); MEAN CORPUSCULAR HGB CONC 33.9 g/dl (33.0-37.0); MONO # 1.2 10*3/uL (0.1-1.0); MONO % 7.5 % (3.0-9.0); NEUT # 10.8 10*3/uL (2.3-7.9); NEUT % 69.9 % (47.0-73.0); PLATELET COUNT AUTOMATED 511 10*3/uL (130-400); RED BLOOD COUNT 4.34 10*6/uL (4.10-5.10); RED CELL DISTRI WIDTH 12.3 % (0-14.5); WHITE BLOOD COUNT 15.5 10*3/uL (4.8-10.8)
[2024-11-18 06:54] LABS: MEAN CELL VOLUME 87.8 fl (81.0-99.0)
[2024-11-18] MEDS ORDERED: INSULIN LISPRO 1 UNIT/0.01 ML SQ SCH (07:30)
[2024-11-18] MEDS ORDERED: Enoxaparin Sodium 40 MG/0.4 ML SYR SC SCH (10:00)
[2024-11-18] MEDS ORDERED: SODIUM PHOSPHATE 15 MMOL in SODIUM CHLORIDE 0.9% 250 ML IV ONE (12:10)
== END 2024-11-18 15:38 | disposition home or self-care (01) | DRG 638 ==
LOC: ED 09:44 → EDHOLD 12:59
PROVIDERS: Internal Medicine; Student in an Organized Health Care Education/Training Program; ADMIT Internal Medicine; ATTEND Internal Medicine
DX: E10.10 Type 1 diabetes mellitus with ketoacidosis without coma (principal); E87.1 Hypo-osmolality and hyponatremia; R65.10 Systemic inflammatory response syndrome (SIRS) of non-infectious origin without acute organ dysfunction; F12.10 Cannabis abuse, uncomplicated; F17.210 Nicotine dependence, cigarettes, uncomplicated; D75.839 Thrombocytosis, unspecified; E86.0 Dehydration; E87.8 Other disorders of electrolyte and fluid balance, not elsewhere classified; E87.6 Hypokalemia; D72.829 Elevated white blood cell count, unspecified; E10.69 Type 1 diabetes mellitus with other specified complication; E55.9 Vitamin D deficiency, unspecified; K20.90 Esophagitis, unspecified without bleeding; Z82.49 Family history of ischemic heart disease and other diseases of the circulatory system; Z83.3 Family history of diabetes mellitus; Z80.0 Family history of malignant neoplasm of digestive organs

== ENCOUNTER 2024-12-02 09:38 | Inpatient (IN) | payer SELFPAY ==
[~2024-12-02] VITALS: Ht 160 cm; Wt 53.1 kg
[2024-12-02 09:44] VITALS: BP 124/83
[2024-12-02] MEDS ORDERED: SODIUM CHLORIDE 0.9% 1,000 ML IV ONE ×3 (09:55→12:25)
[2024-12-02 10:36] LABS: MEAN CELL VOLUME 86.9 fl (81.0-99.0); MEAN CORPUSCULAR HGB 29.4 pg (27.0-31.0); MEAN PLATELET VOLUME 9.1 fl (9.6-12.3); NUCLEATED RED BLOOD CELL 0.0 % (0.0-0.0); NUCLEATED RED BLOOD CELL 0.0 10*3/uL (0.0-0.0); PLATELET COUNT AUTOMATED 560 10*3/uL (130-400); RED CELL DISTRI WIDTH 12.6 % (0-14.5)
[2024-12-02 10:41] LABS: MANUAL DIFF REFLEX YES
[2024-12-02 11:01] LABS: PLATELET SUFFICIENCY HIGH (NORMAL)
[2024-12-02 11:02] LABS: BUN 37 mg/dl (9-23); SGPT/ALT 12 U/L (5-49)
[2024-12-02 11:06] LABS: ETHYL ALCOHOL < 3.0 mg/dl (<3)
[2024-12-02] MEDS ORDERED: INSULIN REGULAR, HUMAN 1 UNIT/0.01 ML IV ONE (11:10)
[2024-12-02 11:57] VITALS: BP 105/60
[2024-12-02] MEDS ORDERED: Acetaminophen/Hydrocodone 5 MG/325 MG TABLET PO PRN (12:15)
[2024-12-02] MEDS ORDERED: BISACODYL 10 MG SUPP R PRN (12:15)
[2024-12-02] MEDS ORDERED: BISACODYL 5 MG TAB PO PRN (12:15)
[2024-12-02] MEDS ORDERED: ACETAMINOPHEN 325 MG TAB PO PRN (12:15)
[2024-12-02] MEDS ORDERED: Ondansetron Hydrochloride 4 MG/2 ML VIAL IV PRN (12:15)
[2024-12-02] MEDS ORDERED: ACETAMINOPHEN 650 MG SUPP R PRN (12:15)
[2024-12-02] MEDS ORDERED: INSULIN REGULAR IN 0.9 % NACL 100 ML IV SCH (12:20)
[2024-12-02] MEDS ORDERED: POTASSIUM CHLORIDE 20 MEQ TAB PO PRN (12:20)
[2024-12-02] MEDS ORDERED: POTASSIUM CHLORIDE 20 MEQ/100 ML BAG IV PRN (12:20)
[2024-12-02 13:00] VITALS: BP 132/95
[2024-12-02 14:15] LABS: BUN 35 mg/dl (9-23)
[2024-12-02] MEDS ORDERED: POTASSIUM CHLORIDE 20 MEQ TAB PO ONE ×2 (14:40→18:00)
[2024-12-02] MEDS ORDERED: DEXTROSE 5% SALINE 0.45% 1,000 ML IV SCH (15:45)
[2024-12-02 15:57] LABS: BILIRUBIN Negative (Negative); BLOOD Negative (Negative); CLARITY Cloudy (Clear); COLOR Yellow (Yellow); KETONE 3+ (Negative); LEUKO ESTERASE Negative (Negative); NITRITE Negative (Negative); PH 5.0 (4.5-8.0); SPECIFIC GRAVITY >= 1.030 (1.001-1.030); UROBILINOGEN 0.2 E.U./dl (0.0-1.0)
[2024-12-02 16:00] VITALS: BP 143/86
[2024-12-02 16:01] LABS: URINE AMPHETAMINES Positive (1000ng/ml); URINE BARBITURATES Negative (200ng/ml); URINE BENZODIAZEPINES Negative (200ng/ml); URINE CANNABINOIDS (THC) Positive (50ng/ml); URINE COCAINE Negative (300ng/ml); URINE METHADONE Negative (300ng/ml); URINE OPIATES Positive (300ng/ml); URINE PHENCYCLIDINE Negative (25ng/ml)
[2024-12-02] MEDS ORDERED: ACETAMINOPHEN 60 ML IV ONE (17:10)
[2024-12-02 17:54] LABS: BACTERIA 3+; EPITHELIAL CELLS 21-30; WBC 0-2 wbc/hpf (0-5)
[2024-12-02 19:11] LABS: BUN 29 mg/dl (9-23)
[2024-12-02 19:35] LABS: B-hCG (QUALITATIVE) NEGATIVE (NEGATIVE)
[2024-12-02 20:00] VITALS: BP 125/83
[2024-12-02 22:05] LABS: BUN 27 mg/dl (9-23)
[2024-12-03] VITALS: BP 145/85
[2024-12-03 03:10] LABS: BUN 21 mg/dl (9-23)
[2024-12-03] MEDS ORDERED: POTASSIUM CHLORIDE 20 MEQ TAB PO ONE (04:00)
[2024-12-03] MEDS ORDERED: DEXTROSE 5% SALINE 0.9% 1,000 ML IV SCH (04:15)
[2024-12-03 06:00] LABS: MEAN CELL VOLUME 88.2 fl (81.0-99.0); MEAN CORPUSCULAR HGB 29.5 pg (27.0-31.0); MEAN PLATELET VOLUME 9.1 fl (9.6-12.3); NUCLEATED RED BLOOD CELL 0.0 % (0.0-0.0); NUCLEATED RED BLOOD CELL 0.0 10*3/uL (0.0-0.0); PLATELET COUNT AUTOMATED 468 10*3/uL (130-400); RED CELL DISTRI WIDTH 12.7 % (0-14.5)
[2024-12-03 06:09] LABS: MANUAL DIFF REFLEX YES
[2024-12-03 06:34] LABS: PLATELET SUFFICIENCY HIGH (NORMAL)
[2024-12-03 07:12] LABS: BUN 17 mg/dl (9-23); FREE T4 1.31 ng/dl (0.89-1.76)
[2024-12-03 07:19] LABS: SGPT/ALT < 7 U/L (5-49)
[2024-12-03 07:44] VITALS: BP 140/76
[2024-12-03] MEDS ORDERED: GADOTERATE MEGLUMINE 7.5 MMOL/15 ML VIAL IV ONE (10:33)
[2024-12-03 10:40] LABS: BUN 14 mg/dl (9-23)
[2024-12-03 11:34] VITALS: BP 146/97
[2024-12-03] MEDS ORDERED: PILOCARPINE HYDROCHLORIDE OPH ONE (14:35)
[2024-12-03] MEDS ORDERED: ACETAZOLAMIDE SODIUM 500 MG IV ONE (14:35)
[2024-12-03] MEDS ORDERED: BRIMONIDINE 0.2% 15 ML BOTTLE OPH ONE (14:35)
[2024-12-03] MEDS ORDERED: TIMOLOL 0.5% OPHTHALMIC 5 ML BOTTLE OPH ONE (14:35)
[2024-12-03 15:25] LABS: BUN 11 mg/dl (9-23)
[2024-12-03] MEDS ORDERED: MOXIFLOXACIN HYDROCHLORIDE OPH SCH (15:30)
[2024-12-03] MEDS ORDERED: DEXTROSE 50% 25 GM/50 ML VIAL IV PRN (15:45)
[2024-12-03 16:00] VITALS: BP 133/83
[2024-12-03] MEDS ORDERED: INSULIN LISPRO 1 UNIT/0.01 ML SQ SCH (16:30)
[2024-12-03] MEDS ORDERED: Insulin Glargine, Recombinan 1 UNIT/0.01 ML SC SCH (18:00)
[2024-12-03] MEDS ORDERED: OFLOXACIN 0.3% 5 ML BOTTLE OPH SCH (18:00)
[2024-12-03 20:00] VITALS: BP 150/96; BP 152/160
[2024-12-04 04:00] VITALS: BP 135/78
[2024-12-04 04:28] LABS: MEAN CELL VOLUME 88.1 fl (81.0-99.0); MEAN CORPUSCULAR HGB 30.2 pg (27.0-31.0); MEAN PLATELET VOLUME 9.1 fl (9.6-12.3); NUCLEATED RED BLOOD CELL 0.0 % (0.0-0.0); NUCLEATED RED BLOOD CELL 0.0 10*3/uL (0.0-0.0); PLATELET COUNT AUTOMATED 389 10*3/uL (130-400); RED CELL DISTRI WIDTH 12.7 % (0-14.5)
[2024-12-04 04:30] LABS: MANUAL DIFF REFLEX YES
[2024-12-04 04:53] LABS: PLATELET SUFFICIENCY NORMAL (NORMAL)
[2024-12-04 04:54] LABS: BUN 11 mg/dl (9-23)
[2024-12-04 08:00] VITALS: BP 150/101
[2024-12-04] MEDS ORDERED: POTASSIUM CHLORIDE 20 MEQ TAB PO ONE (08:05)
[2024-12-04] MEDS ORDERED: TIMOLOL 0.5% OPHTHALMIC 5 ML BOTTLE OPH ONE (09:40)
[2024-12-04] MEDS ORDERED: PILOCARPINE HYDROCHLORIDE OPH ONE (09:40)
[2024-12-04] MEDS ORDERED: BRIMONIDINE 0.2% 15 ML BOTTLE OPH ONE (09:40)
[2024-12-04 12:00] VITALS: BP 116/77
[2024-12-04] MEDS ORDERED: LANTUS100 UNIT/1 SC (14:48)
[2024-12-04] MEDS ORDERED: ADMELOG100 UNIT/1 SQ (14:48)
[2024-12-04] MEDS ORDERED: Phosphorus/Potassium 1.45 GM PACKET PO SCH (17:00)
[2024-12-04] MEDS ORDERED: Insulin Glargine, Recombinan 1 UNIT/0.01 ML SC SCH (18:00)
[2024-12-05] MEDS ORDERED: OFLOXACIN 0.3% 5 ML BOTTLE OPH SCH (18:00)
== END 2024-12-04 16:05 | disposition short-term general hospital (02) | DRG 637 ==
LOC: ED 09:38 → EDHOLD 11:30 → ICCU 11:30 → 5E 12:15 → EDHOLD 12:15 → ICCU 12:51
PROVIDERS: Internal Medicine; ADMIT Internal Medicine; ATTEND Internal Medicine
PROC: 0HBRXZZ Excision of Toe Nail, External Approach (ICD-10-PCS; principal; 2024-12-02)
PROC: 0HBRXZZ Excision of Toe Nail, External Approach (ICD-10-PCS; 2024-12-02)
PROC: 0HBRXZZ Excision of Toe Nail, External Approach (ICD-10-PCS; 2024-12-02)
PROC: 0HBRXZZ Excision of Toe Nail, External Approach (ICD-10-PCS; 2024-12-02)
PROC: 0HBRXZZ Excision of Toe Nail, External Approach (ICD-10-PCS; 2024-12-02)
PROC: 0HBRXZZ Excision of Toe Nail, External Approach (ICD-10-PCS; 2024-12-02)
PROC: 0HBRXZZ Excision of Toe Nail, External Approach (ICD-10-PCS; 2024-12-02)
PROC: 0HBRXZZ Excision of Toe Nail, External Approach (ICD-10-PCS; 2024-12-02)
PROC: 0HBRXZZ Excision of Toe Nail, External Approach (ICD-10-PCS; 2024-12-02)
PROC: 0HBRXZZ Excision of Toe Nail, External Approach (ICD-10-PCS; 2024-12-02)
DX: E10.10 Type 1 diabetes mellitus with ketoacidosis without coma (principal); N17.0 Acute kidney failure with tubular necrosis; R65.10 Systemic inflammatory response syndrome (SIRS) of non-infectious origin without acute organ dysfunction; D75.839 Thrombocytosis, unspecified; F17.210 Nicotine dependence, cigarettes, uncomplicated; H57.04 Mydriasis; H53.9 Unspecified visual disturbance; D72.825 Bandemia; B35.1 Tinea unguium; H40.9 Unspecified glaucoma; D64.9 Anemia, unspecified; L60.2 Onychogryphosis; F12.10 Cannabis abuse, uncomplicated; Z82.49 Family history of ischemic heart disease and other diseases of the circulatory system; Z83.3 Family history of diabetes mellitus; Z80.0 Family history of malignant neoplasm of digestive organs

== ENCOUNTER 2025-03-28 13:46 | Emergency (ER) | payer MEDICAID ==
[~2025-03-28] VITALS: Ht 160 cm; Wt 57.2 kg
[~2025-03-28 13:46] MED LIST changes: +ADMELOG100 UNIT/1 SQ
[2025-03-28 14:06] VITALS: BP 130/89
[2025-03-28] MEDS ORDERED: IRON325 M1 PO (14:07)
[2025-03-28] MEDS ORDERED: MELOXICAM15 MG PO (14:08)
[2025-03-28] MEDS ORDERED: VITAMIN C500 M7 PO (14:08)
[2025-03-28] MEDS ORDERED: TIZANIDINE HCL4 MG PO (14:08)
[2025-03-28] MEDS ORDERED: TIMOLOL 0.5% OPHTHALMIC 5 ML BOTTLE OPH ONE (14:50)
[2025-03-28] MEDS ORDERED: acetaZOLAMIDE 250 MG TAB PO ONE (14:50)
[2025-03-28] MEDS ORDERED: BRIMONIDINE 0.2% 15 ML BOTTLE OPH ONE ×2 (14:50→19:20)
[2025-03-28] MEDS ORDERED: PILOCARPINE HYDROCHLORIDE OPH SCH (15:00)
[2025-03-28] MEDS ORDERED: PILOCARPINE HYDROCHLORIDE OPH ONE (19:20)
== END 2025-03-28 20:55 | disposition short-term general hospital (02) ==
LOC: ED 13:46
DX: H40.212 Acute angle-closure glaucoma, left eye (principal); E11.9 Type 2 diabetes mellitus without complications; F17.210 Nicotine dependence, cigarettes, uncomplicated